=== PATIENT | male | born 1960 | race Caucasian/White ===

== ENCOUNTER 2016-03-04 23:35 | Inpatient (IN) | payer MEDICAID ==
[~2016-03-04] VITALS: Ht 175.3 cm; Wt 75.7 kg
[~2016-03-04 23:35] MED LIST: PRINIVIL20 MG PO; PROTONIX40 MG PO; ULTRAM50 MG PO
[2016-03-05] VITALS (13 sets, daily range): BP systolic 100–143; BP diastolic 67–107; Ht 175.3 cm; Wt 75.7 kg
[2016-03-05 00:51] LABS: BASOPHILS 0 % (0.0-2.0); EOSINOPHILS 1.1 % (0-7); HEMATOCRIT 40.6 % (42.0-54.0); HEMOGLOBIN 13.7 g/dL (13.5-17.5); IMMATURE GRANULOCYTES 0.3 % (0-5); LYMPHOCYTES 47.6 % (15-50); MCH 29.7 pg (26.0-34.0); MCHC 33.7 g/dL (31.0-37.0); MCV 88.1 fL (80.0-100.0); MEAN PLATELET VOLUME 9.6 fL (7.4-10.4); MONOCYTES 8.6 % (2-11); NEUTROPHILS 42.4 % (40-80); PLATELET COUNT 113 10x3/uL (130-400); RBC 4.61 10x6/uL (4.20-6.10); RDW 14.3 % (11.5-14.5); WBC 6.7 10x3/uL (4.8-10.8)
[2016-03-05 01:06] LABS: ALBUMIN 3.5 g/dL (3.4-5.0); ALKALINE PHOSPHATASE 84 U/L (46-116); ALT (SGPT) 241 U/L (10-68); CALCIUM 8.4 mg/dL (8.5-10.1); CARBON DIOXIDE 25.5 mmol/L (21.0-32.0); CHLORIDE - SERUM 105 mmol/L (98-107); CREATINE KINASE 62 UL (21-232); CREATININE - SERUM 0.7 mg/dL (0.6-1.3); MAGNESIUM - SERUM 1.8 mg/dL (1.8-2.4); POTASSIUM - SERUM 4.3 mmol/L (3.5-5.1); PROTEIN - SERUM 7.2 g/dL (6.4-8.2); SODIUM 140 mmol/L (136-145); UREA NITROGEN 8 mg/dL (7-18); eGFR NON AFRICAN AMERICAN > 90 mL/min (90-120)
[2016-03-05 01:07] LABS: BILIRUBIN - TOTAL 0.09 mg/dL (0.2-1.3); CALC OSMOLALITY 276 mosm/kg (275-300); GLUCOSE 91 mg/dL (74-106)
[2016-03-05] MEDS ORDERED: LAMISIL250 MG PO (05:31)
[2016-03-05] MEDS ORDERED: ZOLOFT100 MG PO (05:36)
[2016-03-05] MEDS ORDERED: AMBIEN10 MG (05:36)
[2016-03-05 05:57] LABS: APPEARANCE CLEAR (CLEAR); BILIRUBIN NEGATIVE (NEGATIVE); COLOR YELLOW (YELLOW); GLUCOSE NEGATIVE (NEGATIVE); KETONE NEGATIVE (NEGATIVE); LEUKOCYTE ESTERASE NEGATIVE (NEGATIVE); NITRITE NEGATIVE (NEGATIVE); PROTEIN NEGATIVE (NEGATIVE); UROBILINOGEN NORMAL (NORMAL)
[2016-03-05 06:07] LABS: UDS - AMPHET NEGATIVE QUAL (NEGATIVE); UDS - BARB NEGATIVE QUAL (NEGATIVE); UDS - BENZO POSITIVE QUAL (NEGATIVE); UDS - COCAINE NEGATIVE QUAL (NEGATIVE); UDS - METH NEGATIVE QUAL (NEGATIVE); UDS - OPIATE NEGATIVE QUAL (NEGATIVE); UDS - PCP NEGATIVE QUAL (NEGATIVE); UDS - THC NEGATIVE QUAL (NEGATIVE)
--- NOTE | 2016-03-05 07:20 | NUR ---
PATIENT RECEIVED IN LEFT LATERAL POSITION RESTING WITH EYES CLOSED. RESPIRATIONS EVEN AND UNLABORED. SIDE RAILS UP X3. BED IN LOW POSITION. CALL LIGHT IN REACH.
--- NOTE | 2016-03-05 09:30 | NUR ---
PATIENT IN BED RESTING QUIETLY WITH EYES CLOSED. RESPIRATIONS EVEN AND UNLABORED. WAKES EASY. SCHEDULED MEDICATION ADMINISTERED. IV TO LEFT FOREARM HARD TO FLUSH AND RED. IV D/C WITH CATH TIP INTACT. SITE COVERED WITH GAUZE AND BANDAID. ATTEMPTED TO RESITE IV TO RIGHT FOREARM X1 ATTEMPT WITHOUT SUCCESS. CALL LIGHT IN REACH. SIDE RAILS UP X3. BED IN LOW POSITION. CALL LIGHT IN REACH.
--- NOTE | 2016-03-05 10:10 | NUR ---
DOROTHY FORTE RN ATTEMPT TO RESITE IV X2 FAILED ATTEMPTS. CONSULT FOR VASCULAR ACCESS NURSE PLACED.
--- NOTE | 2016-03-05 11:42 | NUR ---
SCHEDULED MEDICATION ADMINISTERED. RIGHT MIDLINE FLUSHES EASY. DENIES NEEDS. AT BEDSIDE. SIDE RAILS UP X3. BED IN LOW POSITION. CALL LIGHT IN REACH.
[2016-03-05 12:00] LABS: MAGNESIUM - SERUM 1.8 mg/dL (1.8-2.4); PHOSPHOROUS 3.2 mg/dL (2.5-4.9)
--- NOTE | 2016-03-05 12:20 | NUR ---
NOTIFIED BY NURSE AID THAT PATIENT WAS HAVING SEIZURE. OBSERVED PATIENT SHAKING. ELLA RN AND PHYSICIANS AT BEDSIDE. PATIENT TURNED TO SIDE.
--- NOTE | 2016-03-05 12:23 | NUR ---
2MG ATIVAN ADMINISTERED IV FOR SEIZURE ACTIVITY.
--- NOTE | 2016-03-05 12:30 | NUR ---
PATIENT BEGAN SEIZING AGAIN. 1MG ATIVAN ADMINISTERED IV PER ORDER.
--- NOTE | 2016-03-05 12:35 | NUR ---
REPORT CALLED TO ICU. PAULA HICKEY RECEIVED REPORT. PATIENT TRANSFERRED VIA BED.
--- NOTE | 2016-03-05 12:41 | NUR ---
Received patient from med surg. Pt self transferred from bed to bed. Pt is currently sinus tach on CM rate 120s. BP stable 120s systolic. Patient c/o pain 10/10 headache. Pt received ativan and diludid on med surg. Patient is exteremly photosensitive upon assessing pupils. Pupils are equal and reactive to light, accomidation not assessed. Lungs are clear throughout all lobes, 96% o2 saturation on room air. Pt voids via urinal. See shift assessment flowsheet for all findings.
--- NOTE | 2016-03-05 13:30 | NUR ---
through to see patient. New orders received.
--- NOTE | 2016-03-05 13:54 | NUR ---
back through to see patient. No new orders received.
--- NOTE | 2016-03-05 17:44 | NUR ---
Patient back from MRI, I accompained pt to, from and during MRI. There has not been any seizures since pt arrived from [facility]. Pt continues to c/o headache, pain meds cannot yet be administered. Pt set up with phone and call light. Denies needs.
--- NOTE | 2016-03-05 18:55 | HP ---
PATIENT: FAUSTO MUSA MEDICAL RECORD: [id number] ACCOUNT: [id number] LOCATION:[facility] D.2305 : 62 ADMISSION DATE: 03/05/16 HISTORY AND PHYSICAL EXAMINATION Family Practice History and Physical DATE OF ADMISSION: 03/05/2016. HISTORY OF PRESENT ILLNESS: Mr. Musa is a 55-year-old white male, patient of Dr. Montes, who presents with a possible seizure activity at home witnessed by his , called the EMS and brought in. He was subsequently admitted. He has a longstanding history of alcohol abuse, was recently started on Zoloft and tramadol for some pain issues. CT of his head in the Emergency Room revealed nothing acute. LABORATORY DATA: White count was 6.7, H&H 13 and 40 with a platelet count of 113. Sodium 140, potassium 4.3, BUN 8, creatinine 0.7, glucose 91. Liver function tests reveal a total bilirubin of 0.09, ALT is 241, AST 138. Toxicology was positive for benzos. Alcohol level was 152. Urine was clean. PAST MEDICAL HISTORY: Significant for hepatitis C, chronic alcohol abuse. He has had a history of GI bleed and pancreatitis in the past related to his alcohol abuse. ALLERGIES: None known. HOME MEDICATIONS: Recently been on terbinafine 250 mg every day, lisinopril 20 a day, Ambien 10 at bedtime, sertraline 100 at bedtime, tramadol 50 q.4 p.r.n., pantoprazole 40 mg a day. SOCIAL HISTORY: The patient is . He has a positive history of tobacco use and alcohol abuse. Works in heating and air. REVIEW OF SYSTEMS: Significant for headache. He has got some photophobia, has not had any fever, denies any visual change, denies chest pain or shortness of breath. PHYSICAL EXAMINATION: HEENT: Head is normocephalic. He has got a hearing aid in place. Sclerae nonicteric. NECK: Without rigidity. HEART: Regular. LUNGS: Clear. ABDOMEN: Soft. IMPRESSION: 1. Seizure disorder. 2. Alcohol abuse. 3. Recent addition of SSRI and tramadol for headache. 4. Negative CT. PLAN: Admit, move into ICU now because of continued seizures has been loaded with Cerebrex. Neurology consult. Consider MRI, but we will need to stabilize first. No infectious signs or symptoms at this time. HISTORY AND PHYSICAL [id number] FAUSTO MUSA TRANSINT:[id number] Voice Confirmation ID: [id number] DOCUMENT ID: [id number] KIMO OMALLEY DO at 1855 CC: [id number] DICTATION DATE: 03/05/16 1301 REINFORCER: 03/05/16 1412 ADM IN [id number] [place] [address]
--- NOTE | 2016-03-05 19:18 | NUR ---
PAtient had seziure like activity from appx 1389-1801. Pt is currently postictal. I called and spoke to him, gave him information regarding seizure and received new orders. Also spoke to Sandrine with and received new orders.
--- NOTE | 2016-03-05 19:20 | NUR ---
REPORT REC'D, ASSUMED PT'S CARE. PT C/O HEADACHE, STILL POSTICAL POSITION. CPOC
--- NOTE | 2016-03-05 20:10 | NUR ---
PT OOB, WANTS TO USE BATHROOM. BEDSIDE COMMADE PROVIDED. NO RESULTS NOTED.
--- NOTE | 2016-03-05 21:00 | NUR ---
PT OOB, WANTS TO HAVE BATH, ASSISTED WITH LINEN AND GOWN. PT SITTING BY SINK WASHING SELF, SHAVEING AND ORAL CARE. DENIES PAIN OR DISCOMFORT AT THIS TIME. VSS.
--- NOTE | 2016-03-05 21:38 | NUR ---
PT REQUESTED TO EAT, SANDWICH BAX PROVIDED. ENTERED IN ROOM, PT START HAVING SEIZURE LIKE ACTIVITY, TWITCHING, BUT RESPONSIVE TO PAIN, PT STATES THAT HE FELLTS COMING THE SEIZURE.
[2016-03-06] VITALS: BP 134/86
[2016-03-06 01:00] VITALS: BP 114/79
--- NOTE | 2016-03-06 01:00 | NUR ---
PT PULLED ALL GLOBAL MARKETING SPECIALIST LINES OFF. STAND UP AND RUNNIG AROUND ROOM, ENCOUREGED TO USE CALL LIGHT FOR ANY NEEDS.
[2016-03-06 03:00] VITALS: BP 110/68
--- NOTE | 2016-03-06 03:00 | NUR ---
REASSESSMENT COMPLETED, SEE FLOW SHEETS FOR ALL FINDINGS. VSS
[2016-03-06 05:36] LABS: BASOPHILS 0 % (0.0-2.0); EOSINOPHILS 0.7 % (0-7); HEMATOCRIT 39.5 % (42.0-54.0); HEMOGLOBIN 12.9 g/dL (13.5-17.5); IMMATURE GRANULOCYTES 0.1 % (0-5); MCH 29.8 pg (26.0-34.0); MCHC 32.7 g/dL (31.0-37.0); MONOCYTES 12.8 % (2-11); NEUTROPHILS 52.4 % (40-80); PLATELET COUNT 122 10x3/uL (130-400); RBC 4.33 10x6/uL (4.20-6.10); RDW 14.6 % (11.5-14.5); WBC 6.7 10x3/uL (4.8-10.8)
[2016-03-06 05:41] LABS: ALBUMIN 3.8 g/dL (3.4-5.0); ALKALINE PHOSPHATASE 79 U/L (46-116); ALT (SGPT) 225 U/L (10-68); BILIRUBIN - TOTAL 0.45 mg/dL (0.2-1.3); CALCIUM 8.6 mg/dL (8.5-10.1); CARBON DIOXIDE 28.6 mmol/L (21.0-32.0); CHLORIDE - SERUM 107 mmol/L (98-107); GLUCOSE 101 mg/dL (74-106); POTASSIUM - SERUM 4.4 mmol/L (3.5-5.1); PROTEIN - SERUM 7.1 g/dL (6.4-8.2); SODIUM 145 mmol/L (136-145)
[2016-03-06 05:52] LABS: CALC OSMOLALITY 287 mosm/kg (275-300); CREATININE - SERUM 0.9 mg/dL (0.6-1.3); UREA NITROGEN 11 mg/dL (7-18); eGFR NON AFRICAN AMERICAN > 90 mL/min (90-120)
[2016-03-06 05:53] LABS: MCV 91.2 fL (80.0-100.0)
--- NOTE | 2016-03-06 08:43 | NUR ---
0700-RECIEVED AWAKE ALERT-STANDING IN RM -AIRING OUT CLOTHING-RECIVING VERBAL REPORT FROM NIGHT NURSE-GLANCED UP AT PT AND NOT PRESENT -ENTERED ROOM WITH NIGHT NURSE AND FOUND ON FLOOR IN STIFFENED STRAIGHT RIGID POSITION-ROLLED ON BLANKET AND IAP DISPLAYS ANALYST LIFTED TO BED WITH 4 NURSES TOTAL-DR CEVALLOS AT BEDSIDE-PT MADE AGRESSIVE MOVEMENTS TOWARDS DR CEVALLOS-IN RESPONSE TO NUERO CHECK-ATIVAN 2MG IVP GIVEN BY NIGHT NURSE IN ATTEMPT TO RELEASE PT STRONG PAINFUL HAND LIGHT RAIL OPERATOR TO DR CEVALLOS-RELEASE OBTAINED-PT GUTTERAL IN VERBAL RESPONSE-BEGAN ROCKING MOTION IN BED-AND INCREASED TO BANGING HEAD ON BED RAILS-STAFF INTERVENED TO PREVENT DAMAGE TO HEAD -NOTED LACERATED AREA TO L LOWER BACK HEAD-NIGHT NURSE STATED THAT IS THE RESULT OF PT SHAVING HAIR OFF DURING NIGHT WHEN ASKED FOR RAZOR-AREA CLEANED AND TEGADERM APPLIED--PT ROCKING BACK AND FORTH AND CLUTCHING HEAD-ASKED SAME IF NEEDED COLD CLOTHE FOR HEAD =PT READILY AGREED-PROVIDED ICE CLOTH AND INSTRUCTED TO PLACE ON AREA CAUSING PAIN-PT PLACED CLOTHE TO RIGHT LATERAL HEAD-AND LAYED DOWN 0745-DILAUDID 1MG IVP GIVEN-BED ALARM TURNED ON AND DIRECTED TO REMAIN IN BED 0830-PT ALERT AND VERBALLY CLEAR-STATED PAIN DECREASED BUT REMAINS-QUESTIONED PT IF USED AND SOLE CONFORMING MACHINE OPERATOR TYPE DRUGS/ MARIJUANA LACED-COCAINE LACED-PT NODDED YES BUT WOULD NOT CLARIFY-ENCOURAGED PT WITH STATING THAT WOULD BE THE BEST RESULT ANSWER-NO FURTHER--PT STATED WANT TO GET OUT OF HERE AND BEAT SOMEBODIES ASS-HEAVY BOOTS REMOVED DURING EARLIER INCIDENT AND PLACED AT NURSES DESK-BELONGINGS REMOVED AND PLACED AT NURSES DESK-LABELED-- 0845- CALLED UNIT AND OFFERED HAS BEEN AT [facility] AND OTHER PSYCHIATRIC UNITS-OFFERED -DIAGNOSED WITH EXPLOSIVE--BI-POLAR DISORDER-OFFERED TO BRING RECORDS TO HOSPITAL-STATED NON COMPLIANT WITH PT MEDICATIONS-STATED SHE NEVER KNOWS HOW SHE WILL FIND HIM WHEN SHE COMES HOME FROM WORK-
[2016-03-06 09:10] VITALS: BP 139/96
[2016-03-06 09:18] LABS: HEPATITIS C ANTIBODY >11.0 (0.0-0.9)
--- NOTE | 2016-03-06 10:12 | NUR ---
Nutrition follow-up: Diet: Regular Pt still with seizure like activity noted Labs reviewed Wt: 166# Will provide food choices with selective menus and honor food preferences. RDN following.
--- NOTE | 2016-03-06 10:50 | NUR ---
PATIENT IS CONFUSED AND DISORIENTED. HE IS NOT ABLE TO ANSWER QUESTIONS AT THIS TIME. I HAVE NOT SEEN ANY FAMILY HERE TO INTERVIEW.
[2016-03-06 11:40] VITALS: BP 141/93
--- NOTE | 2016-03-06 12:17 | NUR ---
899-FOUND PT WITH BLANKET COVERED OVER HEAD AND WRAPPED AROUND SELF -LEAVING RM-CALLED TO PT- RETURN TO RM-ENGINEERING (SECURITY) SERVICES NOTIFIED OF HIGH VIOLENT RISK WITH CARING FOR PT- 929-SECURITY AT BEDSIDE-FOR STAFF SAFETY- 1029-PT CALLING POLICE DEPARTMENT-STATING HELD AGAINST WILL- 1045-DR ABARCA IN UNIT AND MADE AWARE OF SITUATION 1100-DISCHARGE ORDER PER DR ABARCA--CRUSHING MILL OPERATOR AT BEDSIDE -ASKED PT PERMISSION TO COMPLETE EEG ORDERED-PT AGREEABLE-COMPLETELY DENIES HEADACHE- 1215-EEG COMPLETED PICC LINE REMOVED BY IV SPECIALIST- AT BEDSIDE-ABLE TO HAVE PT AGREE TO VOLUNTARY ADMIT TO [facility]-ONLY TODAY-KBRN
--- NOTE | 2016-03-06 14:02 | NUR ---
7273-CALLED [facility]-AND SPOKE WITH JUANITA MITCHELL REGARDING PT AND VOLUNTARY COMMITTMENT-REQUIRED DATA AND RELEASE OF INFO FAXED TO [facility] AT [phone]- DIRECTED-
--- NOTE | 2016-03-06 14:08 | NUR ---
1255-REFAXED TO [facility]- 1350-CALL RECIEVED FROM KEVIN GOEL-NO ACCEPTANCE-INFORMED -CALLED Kim HYDE [facility] NOTIFIED-NO DISCHARGE ORDERS AT THIS TIME
--- NOTE | 2016-03-06 15:12 | NUR ---
1430-DR ABARCA IN UNIT AND REVIEWED WITH REGARDING REFUSAL OF [facility] ACCEPTANCE THIS WEEKEND-REASONS GIVEN-NO SUICIDAL OR HOMICIDAL IDEATIONS-ONLY EMERGENT BED AVAILABLE AT THIS TIME-- EXPRESSED FEAR AND CONCERN REGARDING PT RAGES AT HOME-STATED SIMILAR TO WHAT PT DISPLAYED IN ICU THIS AM-PROVIDED ADULT PROTECTIVE SERVICES-PROVIDED [place] POLICE DEPARTMENT-PROVIDED DIRECTION TO CALL EMT/ PARAMEDICS AND DIRECT TO HOSPITAL-PSYCHIATRIC CARE PLACEMENT WILL OCCUR MORE READILY EMERGENT-DR CEVALLOS NOTIFIED OF DISCHARGE HOME ORDER AND STRONG ATTEMPT TO PLACE AT [facility] VOLUNTARY- 1500-DISCHARGED HOME WITH -CASE MANAGEMENT MADE AWARE-KBRN
--- NOTE | 2016-03-15 07:21 | EEG ---
PATIENT:FAUSTO BARKAAT DATE OF SERVICE: 03/05/16 MEDICAL RECORD: [id number] DATE OF : 62 LOCATION:D.230 D.ICU ADMISSION DATE: 03/05/16 REFERRING PHYSICIAN: INTERPRETING PHYSICIAN: KRISTINA CEVALLOS MD DATE OF SERVICE: 03/06/2016 Referred by myself as an inpatient in room 2305. ELECTROENCEPHALOGRAM NUMBER: [id number] DATE OF EXAMINATION: 03/06/2016 at 12:00 noon TECHNICAL DATA: This electroencephalographic recording consisted of approximately 20 minutes of data collection utilizing the international 10/20 system of electrode placement and both referential and non-referential montages. Sixteen channels of electrocerebral recording are accompanied by a 17th channel dedicated to the electrocardiographic rhythm and 2 channels of electromyographic recording. Recording is performed in the awake and drowsy states utilizing activation by photic stimulation. ELECTROENCEPHALOGRAPHIC DATA: The awake state comprises approximately 60% of the recorded electrocerebral activity. Electromyographic artifact is prominent and rapid eye movements are seen. The posterior dominant background consists of a symmetric, semi-rhythmic, waxing and waning 8-9 Hz alpha activity, which is suppressed by eye opening. There is also excessive beta activity in the range of 12-15 Hz seen fairly diffusely is across the scalp and felt to represent medication effect. The drowsy state comprises the remaining portion of the recorded electrocerebral activity. Electromyographic artifact is diminished and rapid eye movements are not seen. The posterior dominant background is relatively suppressed. No abnormal or focal slowing is identified. No epileptiform discharges are seen. Photic stimulation induces no abnormal change in the recorded electrocerebral activity. INTERPRETATION: Normal (awake and drowsy). This is a normal electroencephalographic recording. TRANSINT:[id number] Voice Confirmation ID: [id number] DOCUMENT ID: [id number] KRISTINA CEVALLOS MD at 0721 CC: [id number] DICTATION DATE: 03/07/16 0640 RIBBING MACHINE OPERATOR: 03/07/16 0842 DIS IN 03/06/16 [facility] [address] [place] [address]
--- NOTE | 2016-04-14 10:09 | DS ---
PATIENT:FAUSTO BARAKAT :62 MEDICAL RECORD: [id number] DISCHARGE SUMMARY ADMISSION DATE: 03/05/16 DISCHARGE DATE: 03/06/16 This is a discharge dated 03/06/2016 from the inpatient hospital. DISCHARGE DIAGNOSES: 1. Seizure. 2. Anemia. 3. Hepatitis C. 4. Alcohol abuse. 5. Tobacco abuse. 6. Hypertension. CONSULTS THIS HOSPITALIZATION: Neurology with Dr. Villatoro. PROCEDURES THIS HOSPITALIZATION: EEG that was read as normal. HOSPITAL COURSE: Full H&P is located elsewhere on the chart on this 55-year-old male who was admitted for evaluation of possible seizures. He had a CT Head with no acute abnormalities. He was given Ativan to abort seizures and was loaded with Cerebyx. He was admitted to ICU due to continued seizures. Neurology was consulted. He was seen by Dr. Villatoro. Dr. Villatoro noted that the witness to event was nonepileptiform. MRI of the brain was normal. He recommended a video EEG after discharge to further evaluate seizure activity. He had no further seizure-type activity and was considered stable for discharge home on 03/06/2016. DISCHARGE MEDICATIONS: As per discharge medication reconciliation. DISCHARGE DISPOSITION: The patient is discharged home. He is to return to his PCP in 1 week and it was recommended that he attend AA meetings and abstain from alcohol. At least 30 minutes was spent in this discharge activity. TRANSINT:[id number] Voice Confirmation ID: [id number] DOCUMENT ID: [id number] Dictated By: GONZÁLEZ ZHANG I have interviewed/examined the above patient and agree with these documented findings. CHUY ABARCA MD at 1009 at 1010 CC: [id number] DICTATION DATE: 04/10/16 1451 PLATING TECHNICIAN: 04/11/16 0754 DIS IN 03/06/16 [facility] [address] [place] [address]
== END 2016-03-06 15:39 | disposition home or self-care (01) | DRG 101 ==
LOC: D.ER 23:35 → D.MS 03-05 02:03 → OBSVTIME 03-05 02:03 → D.MS 03-05 02:03 → D.ICU 03-05 12:28
PROVIDERS: Emergency Medicine; ADMIT Family Medicine
PROC: 05HB33Z Insertion of Infusion Device into Right Basilic Vein, Percutaneous Approach (ICD-10-PCS; principal; 2016-03-05)
PROC: B54MZZA Ultrasonography of Right Upper Extremity Veins, Guidance (ICD-10-PCS; 2016-03-05)
DX: G40.409 Other generalized epilepsy and epileptic syndromes, not intractable, without status epilepticus (principal); G40.89 Other seizures; F10.20 Alcohol dependence, uncomplicated; K75.9 Inflammatory liver disease, unspecified; F17.200 Nicotine dependence, unspecified, uncomplicated

== ENCOUNTER 2016-05-01 08:15 | Emergency (ER) | payer MEDICAID ==
[2016-03-05 13:19] VITALS: BMI 24.6
[~2016-05-01 08:15] MED LIST changes: +AMBIEN10 MG; +LAMISIL250 MG PO; +ZOLOFT100 MG PO
== END 2016-05-01 10:07 | disposition home or self-care (01) ==
LOC: D.ER 08:15
DX: J20.9 Acute bronchitis, unspecified (principal); B19.20 Unspecified viral hepatitis C without hepatic coma; E87.1 Hypo-osmolality and hyponatremia; F17.200 Nicotine dependence, unspecified, uncomplicated

== ENCOUNTER 2016-05-19 08:49 | Emergency (ER) | payer MEDICAID ==
[2016-03-05 13:19] VITALS: BMI 24.6
[2016-05-19 10:19] LABS: APPEARANCE CLEAR (CLEAR); BILIRUBIN NEGATIVE (NEGATIVE); COLOR YELLOW (YELLOW); GLUCOSE NEGATIVE (NEGATIVE); KETONE NEGATIVE (NEGATIVE); LEUKOCYTE ESTERASE NEGATIVE (NEGATIVE); NITRITE NEGATIVE (NEGATIVE); PROTEIN NEGATIVE (NEGATIVE); UROBILINOGEN NORMAL (NORMAL)
== END 2016-05-19 11:00 | disposition home or self-care (01) ==
LOC: D.ER 08:49
PROVIDERS: Emergency Medicine
DX: T43.215A Adverse effect of selective serotonin and norepinephrine reuptake inhibitors, initial encounter (principal); Y92.019 Unspecified place in single-family (private) house as the place of occurrence of the external cause; N39.9 Disorder of urinary system, unspecified; B19.20 Unspecified viral hepatitis C without hepatic coma; E87.1 Hypo-osmolality and hyponatremia; F17.200 Nicotine dependence, unspecified, uncomplicated

== ENCOUNTER 2016-07-24 13:46 | Emergency (ER) | payer MEDICAID ==
[2016-03-05 13:19] VITALS: BMI 24.6
[2016-07-24 14:42] LABS: BASOPHILS 0 % (0-2); EOSINOPHILS 0.9 % (0-7); HEMATOCRIT 35.2 % (42.0-54.0); HEMOGLOBIN 12.1 g/dL (13.5-17.5); IMMATURE GRANULOCYTES 0.2 % (0-5); LYMPHOCYTES 43.5 % (15-50); MCH 30.3 pg (26.0-34.0); MCHC 34.4 g/dL (31.0-37.0); MCV 88.2 fL (80.0-100.0); MEAN PLATELET VOLUME 9.8 fL (7.4-10.4); MONOCYTES 6.3 % (2-11); NEUTROPHILS 49.1 % (40-80); PLATELET COUNT 107 10x3/uL (130-400); RBC 3.99 10x6/uL (4.20-6.10); RDW 14.5 % (11.5-14.5); WBC 5.4 10x3/uL (4.8-10.8)
[2016-07-24 15:06] LABS: ALBUMIN 3.5 g/dL (3.4-5.0); ALKALINE PHOSPHATASE 124 U/L (46-116); ALT (SGPT) 161 U/L (10-68); AMYLASE - SERUM 24 U/L (25-115); BILIRUBIN - TOTAL 0.33 mg/dL (0.2-1.3); CALC OSMOLALITY 271 mosm/kg (275-300); CALCIUM 8.3 mg/dL (8.5-10.1); CARBON DIOXIDE 24.3 mmol/L (21.0-32.0); CHLORIDE - SERUM 102 mmol/L (98-107); CREATININE - SERUM 0.7 mg/dL (0.6-1.3); GLUCOSE 88 mg/dL (74-106); LIPASE 54 U/L (73-393); POTASSIUM - SERUM 3.7 mmol/L (3.5-5.1); PROTEIN - SERUM 6.9 g/dL (6.4-8.2); SODIUM 138 mmol/L (136-145); UREA NITROGEN 5 mg/dL (7-18); eGFR NON AFRICAN AMERICAN > 90 mL/min (90-120)
== END 2016-07-24 15:21 | disposition left against medical advice (07) ==
LOC: D.ER 13:46
PROVIDERS: Emergency Medicine; Nurse Practitioner Acute Care
DX: R10.84 Generalized abdominal pain (principal)

== ENCOUNTER 2016-09-12 12:59 | Inpatient (IN) | payer MEDICAID ==
[2016-09-12] VITALS (8 sets, daily range): BP systolic 143–164; BP diastolic 77–117
[~2016-09-12] VITALS: Ht 175.3 cm; Wt 72.5 kg
[2016-09-12 13:39] LABS: BASOPHILS 0.2 % (0-2); EOSINOPHILS 0.9 % (0-7); HEMATOCRIT 43.1 % (42.0-54.0); HEMOGLOBIN 14.9 g/dL (13.5-17.5); IMMATURE GRANULOCYTES 0.3 % (0-5); LYMPHOCYTES 44.2 % (15-50); MCH 32.3 pg (26.0-34.0); MCHC 34.6 g/dL (31.0-37.0); MCV 93.3 fL (80.0-100.0); MEAN PLATELET VOLUME 9.7 fL (7.4-10.4); MONOCYTES 7.4 % (2-11); PLATELET COUNT 135 10x3/uL (130-400); RBC 4.62 10x6/uL (4.20-6.10); WBC 6.6 10x3/uL (4.8-10.8)
[2016-09-12 13:58] LABS: ALKALINE PHOSPHATASE 117 U/L (46-116); ALT (SGPT) 269 U/L (10-68); AMYLASE - SERUM 46 U/L (25-115); BILIRUBIN - TOTAL 0.43 mg/dL (0.2-1.3); CALC OSMOLALITY 261 mosm/kg (275-300); CALCIUM 8.3 mg/dL (8.5-10.1); CARBON DIOXIDE 24.4 mmol/L (21.0-32.0); CHLORIDE - SERUM 97 mmol/L (98-107); CREATININE - SERUM 0.6 mg/dL (0.6-1.3); GLUCOSE 123 mg/dL (74-106); LIPASE 119 U/L (73-393); PROTEIN - SERUM 8.5 g/dL (6.4-8.2); SODIUM 131 mmol/L (136-145); UREA NITROGEN 8 mg/dL (7-18); eGFR NON AFRICAN AMERICAN > 90 mL/min (90-120)
[2016-09-12 13:59] LABS: POTASSIUM - SERUM 4.2 mmol/L (3.5-5.1)
[2016-09-12 14:38] LABS: APTT 42.1 SECONDS (22.8-39.4); INR 1.19 (0.85-1.17)
[2016-09-12 14:46] LABS: MAGNESIUM - SERUM 2.1 mg/dL (1.8-2.4)
--- NOTE | 2016-09-12 17:05 | NUR ---
RECIEVED PT AT THIS TIME FROM ER. REPORT RECIEVED FROM PARI. PT NOTED ALERT AND ORIENTED. PT NOTED TO BE SHAKING AND STATING HE IS IN ALOT OF PAIN TO HIS ABDOMEN AND HIS BACK. REDNESS NOTED TO PTS FACE AND BILATERAL ARMS. PT NOTED TO HUNCH OVER AT TIMES AND GRIMACE IN DISCOMFORT WHEN HE EXPERIENCES PAIN, STATING IT FEELS LIKE SHARP PAIN AND COMES AND GOES LIKE CRAMPS. WILL CONTACT PHYSICIAN TO RECIEVE FURTHER ORDERS TO HELP MANAGE PTS PAIN.
--- NOTE | 2016-09-12 17:06 | NUR ---
SPOKE WITH DR OVALLE, ORDERS RECIEVED.
--- NOTE | 2016-09-12 18:38 | NUR ---
SPOKE WITH DR BUITRAGO NOTED UNABLE TO OBTAIN IV ACCESS OTHER THAN RIGHT ANKLE, ORDER FOR SURGERY CONSULT FOR CVL RECIEVED. ALSO NOTED UNABLE TO DECREASE DISCOMFORT AFTER MULTIPLE PRN MEDS FOR DISCOMFORT. DILAUDID MUSIC SUPERVISOR ORDERED. WILL PROCESS ORDERS.
--- NOTE | 2016-09-12 19:17 | NUR ---
NOTED IU PRBC ORDERED BY ER PHYSICIAN BUT DID NOT STATE WHETHER TO ADMIN THE 1UPRBC. CALLER ER NURSE PARI WHO HAD INITIONALLY GIVEN REPORT WHEN PT WAS ADMITTED TO ICU. PARI CLARIFIED THAT PHYSICIAN DID NOT WANT THE 1UPRBC TO BE GIVEN, HE ONLY WANTED THE CROSS AND MATCH TO BE COMPLETED.
--- NOTE | 2016-09-12 19:20 | NUR ---
REPORT RECIEVED, INITIAL ASSESSMENT COMPLETE, PLEASE SEE FLOW SHEETS FOR DETAILS. PATIENT GRIMACING, C/O ABD AND BACK PAIN, OFFERED DYE LINE OPERATOR THAT HAS BEEN ORDERED AND THIS WAS REFUSED. BS HYPO X4. PPP. PUPILS 3MM AND BRISK, CAP REFIL <3 SECONDS. PROVIDED PILLOWS FOR BACK SUPPORT, THESE WERE ACCEPTED. S1S2 AUSCULTATED AND NSR NOTED ON MONITOR. VAUGHAN ORDERED, PATIENT IS ACTIVELY USING URINAL AND NO INCONTINENCE NOTED, PREVIOUS NURSE WAS UNSUCCESSFUL IN INSERTING A VAUGHAN INTO BLADDER. WILL MONITOR FOR VAUGHAN NEED. DENIES ANY OTHER NEEDS ATT. WILL CPOC.
--- NOTE | 2016-09-12 20:40 | NUR ---
PATIENT MOANING OUT, CHECKED IN ON HIM AND ASKED IF HE WANTED PAIN MEDS, HE SAID YES BUT NOT TILE INSTALLER, WILL GIVE PAIN MEDS PER ORDERS.
--- NOTE | 2016-09-12 21:00 | NUR ---
C/O PAIN, OFFERED DILAUDID LITHOGRAPHERS PRINTER, THIS WAS REFUSED AGAIN, BP SLIGHTLY ELEVATED BUT STABLE, ALL OTHER VSS. BED LOW AND LOCKED, CALL LIGHT IN REACH. WILL CPOC.
--- NOTE | 2016-09-12 21:51 | NUR ---
PATIENT CONTINUES TO C/O PAIN IN BACK AND ABD 12/01, REFUSES WINE CELLAR WORKER PUMP CONTINUALLY, ADVISED TO LET ME KNOW IF HE DECIDES THAT HE WANTS IT.
[2016-09-12 22:03] LABS: HEMATOCRIT 36.3 % (42.0-54.0); HEMOGLOBIN 12.4 g/dL (13.5-17.5)
--- NOTE | 2016-09-12 22:06 | NUR ---
PAGED AND SPOKE TO DR ALDRICH, READ XRAY REPORT TO HIM AND HE SAID OKAY TO USE CVL
--- NOTE | 2016-09-12 22:16 | NUR ---
HUNG NEW FLUIDS AND NEW TUBING AND STARTED USING CVL.
--- NOTE | 2016-09-12 23:00 | NUR ---
REASSESSMENT COMPLETE, PLEASE SEE FLWO SHEETS FOR DETAILS. VSS, BED LOW AND LOCKED, CALL LIGHT IN REACH. WILL CPOC.
[2016-09-13] VITALS (25 sets, daily range): BP systolic 108–168; BP diastolic 67–122; BMI 24.2
--- NOTE | 2016-09-13 01:00 | NUR ---
C/O PAIN IN ABD AND BACK 10/01, GIVING PAIN MEDS PER ORDERS. VSS ATT, BED LOW AND LOCKED, CALL LIGHT IN REACH. WILL CPOC.
--- NOTE | 2016-09-13 02:00 | NUR ---
C/O PAIN, TOLD HIM NO PAIN MEDS AVAILABLE ATT, CAN START SUPERVISOR PIGMENT MAKING, THIS WAS REFUSED. OFFERED ICE PACK OR HEATED BLANKET, STATED HE WANTED THE ICE PACK. DENIES ANY OTHER NEEDS ATT. BED LOW AND LOCKED, CALL LIGHT IN REACH. WILL CPOC.
--- NOTE | 2016-09-13 03:00 | NUR ---
REASSESSMENT COMPLETE, PLEASE SEE FLOW SHEETS FOR DETAILS. VSS ATT, STILL C/O PAIN AND REFUSES SUPERVISOR REFRACTORY PRODUCTS PUMP. GIVING MEDS PER ORDERS. BED LOW AND LOCKED, CALL LIGHT IN REACH. NPO ATT. WILL CPOC.
[2016-09-13 03:52] LABS: BASOPHILS 0 % (0-2); EOSINOPHILS 0.4 % (0-7); HEMATOCRIT 36.4 % (42.0-54.0); HEMOGLOBIN 12.5 g/dL (13.5-17.5); IMMATURE GRANULOCYTES 0.4 % (0-5); LYMPHOCYTES 25.6 % (15-50); MCH 32.1 pg (26.0-34.0); MCHC 34.3 g/dL (31.0-37.0); MCV 93.6 fL (80.0-100.0); MEAN PLATELET VOLUME 9.2 fL (7.4-10.4); MONOCYTES 7.7 % (2-11); NEUTROPHILS 65.9 % (40-80); RBC 3.89 10x6/uL (4.20-6.10); RDW 14.9 % (11.5-14.5); WBC 5.1 10x3/uL (4.8-10.8)
[2016-09-13 03:53] LABS: PLATELET COUNT 106 10x3/uL (130-400)
[2016-09-13 04:10] LABS: ALBUMIN 3.5 g/dL (3.4-5.0); ALKALINE PHOSPHATASE 104 U/L (46-116); ALT (SGPT) 217 U/L (10-68); BILIRUBIN - TOTAL 0.89 mg/dL (0.2-1.3); CALC OSMOLALITY 276 mosm/kg (275-300); CALCIUM 7.4 mg/dL (8.5-10.1); CARBON DIOXIDE 30.9 mmol/L (21.0-32.0); CHLORIDE - SERUM 102 mmol/L (98-107); CREATININE - SERUM 0.7 mg/dL (0.6-1.3); GLUCOSE 146 mg/dL (74-106); POTASSIUM - SERUM 4.3 mmol/L (3.5-5.1); PROTEIN - SERUM 7.2 g/dL (6.4-8.2); SODIUM 138 mmol/L (136-145); UREA NITROGEN 6 mg/dL (7-18); eGFR NON AFRICAN AMERICAN > 90 mL/min (90-120)
[2016-09-13 04:14] LABS: INR 1.08 (0.85-1.17); PROTIME 13.8 SECONDS (11.6-15.0)
--- NOTE | 2016-09-13 05:00 | NUR ---
C/O PAIN STILL, NO PAIN MEDS AVAILABLE ATT, WILL MONITOR PAIN LEVELS, REFUSES DIRECTOR OF BUSINESS CONTINUITY STILL. WILL CPOC.
--- NOTE | 2016-09-13 07:32 | NUR ---
AWAKE IN BED AT THIS TIME. NO ACUTE DISTRESS NOTED. PT NOTED TO STATE HE IS IN PAIN TOHIS ABDOMEN AND BACK LEVEL OF 10. RECIEVES PRN PAIN MEDS AND REFUSES MARKETING SALES REPRESENTATIVE. PT ALERT AND ORIENTED. WILL CONTACT PHYSICIAN TO SEE IF CAN GET ANYTHING PRN FOR DT SUCH ATIVAN. WILL CONTINUE PLAN OF CARE.
--- NOTE | 2016-09-13 09:31 | NUR ---
DR BUITRAGO HERE. ORDERS PLACED.
--- NOTE | 2016-09-13 11:34 | NUR ---
DR OVALLE IN ROOM AT THIS TIME TO DO PTS EGD WITH TIVA. CONSENTS HAVE BEEN SIGNED. PT DENIES ANY QUESTIONS OR CONCERNS. WILL CONTINUE PLAN OF CARE.
--- NOTE | 2016-09-13 11:37 | NUR ---
NOTED SHAKING HAS DECREASED SINCE PT HAS RECIEVED PRN ATIVAN.
--- NOTE | 2016-09-13 12:59 | NUR ---
NAUSEA AND VOMITING NOTED. PT TOOK A FEW BITES OF ICE CREAM AND PUDDING AND THEN EMESIS NOTED AFTER INTAKING. PRN ZOFRAN ADMIN AT THIS TIME. WILL ALSO ADMIN PRN MEDS FOR DISCOMFORT PER REQUEST WELL PRN ATIVAN FOR DT. WILL CONTINUE PLAN OF CARE.
--- NOTE | 2016-09-13 15:55 | NUR ---
LYING IN BED WATCHING TV AT THIS TIME. NO ACUTE DISTRESS NOTED. PT STILL NOTED TO HAVE SOME DISCOMFORT TO ABDOMEN AND BACK, PRN PAIN MEDS ADMIN, PT STILL STATES HE DOES NOT STAY CUTTER. NO ACUTE DISTRES NOTED. WILL CONTINUE PLAN OF CARE.
--- NOTE | 2016-09-13 18:14 | NUR ---
UP IN BED WATCHING TV AT THIS TIME. NO ACUTE DISTRESS NOTED. WILL CONTINUE PLAN OF CARE.
--- NOTE | 2016-09-13 18:22 | NUR ---
NOTED PT COMPLAINT OF ITCHING. CALLED DR BUITRAGO. ORDER RECIEVED FOR BENADRYL 25MG IV Q8H PRN. WILL PLACE ORDER.
--- NOTE | 2016-09-13 19:30 | NUR ---
REPORT RECIEVED. SHIFT ASSESSMENT COMPLETE. ORIENTED TO PERSON, PLACE, TIME AND SITUATION. PT IS SITTING UP IN BED SHAKING AND GUARDING HIS STOMACH. HE STATES THAT HE HAS PAIN IN HIS STOMACH 8/10. ADMINISTERED PRN PAIN MEDICATION AND REPOSITIONED PT FOR COMFORT. ACTIVE DT PRESENT. HEARING AIDS IN BOTH EARS. SMALL CUT OR LESION ON PT TONGUE. RADIAL AND PEDAL PULSES PALP. S1S2 AUDIBLE. CLEAR LUNG SOUNDS THROUGHOUT ALL LOBES. BS ACTIVE X4. ABD TENDER TO TOUCH. SKIN IS WARM, DRY AND PINK. L AND R GREAT TOE THERE ARE SKIN TEARS. NON-SKID SOCKS ON. PT STATES THAT HE WANTS HIS SISTER'S NUMBER ERASED FROM THE BOARD AND THAT HE DOES NOT WANT US TO CALL HER. PT REFUSED POWERHOUSE MECHANIC HELPER PUMP. HE STATES THAT WE "KEEP PUSHING IT AND THAT HE DOES NOT WANT IT." I INFORMED HIM THAT WE ARE NOT TRYING TO PUSH MEDICATION ON HIM AT ALL AND ARE SIMPLY REMINDING HIM THAT HE HAS IT AVAILABLE IF THE PAIN GETS TO A POINT TO WHERE IT IS UNBAREABLE WITH HIS PRN MEDS. PT STATES THAT HE UNDERSTANDS. CALL LIGHT IN REACH. BED IN LOWEST POSITION. REFILLED HIS DRINK PER REQUEST. WILL CONTINUE TO MONITOR.
--- NOTE | 2016-09-13 21:20 | NUR ---
PT SITTING UP IN BED AND STATES THAT HE IS HAVING HEART BURN AND WANTS SOME ICE CREAM. DELIVERED PT ICE CREAM PER REQUEST. HE WAS ALSO TRYING TO FIX HIS GLASSES THE R SIDE OF THE GLASS POPPED OUT. I TRIED WELL AND FIXED IT TO A POINT, BUT THE GLASS IS STILL UNSTABLE. CALL LIGHT IN REACH. BED IN LOWEST POSITION. WILL CONTINUE TO MONITOR.
--- NOTE | 2016-09-13 22:35 | NUR ---
PT STATES THAT HE IS IN 8/10 PAIN AT THE MOMENT. HIS BACK AND ABD ARE BOTHERING HIM. ADMINISTERED PRN PAIN MEDICATION, REFILLED DRINK, REPOSITIONED FOR COMFORT. PT DENIES ANY FURTHER REQUEST. WILL REASSESS PAIN PROMPTLY.
--- NOTE | 2016-09-13 23:30 | NUR ---
REASSESSMENT COMPLETE. PT STATES THAT HIS PAIN IS STILL AN 8/10. ADMINISTERED PRN PAIN MED. PARTIAL LINEN CHANGE. REPOSITIONED FOR COMFORT. PILLOW STUFFED UNDER BACK PER REQUEST. PT DENIES ANY FURTHER REQUEST. VSS. WILL CONT WITH POC.
[2016-09-14] VITALS (14 sets, daily range): BP systolic 112–151; BP diastolic 75–99; Ht 175.3 cm; Wt 72.5 kg
--- NOTE | 2016-09-14 01:30 | NUR ---
PT AWAKE AND ALERT REQUESTING MILK AND A SNACK. DELIVERED SNACK TO HIM. PT IS STATING THAT HIS PAIN IS STILL AN 8/10. REPOSITIONED FOR COMFORT, LIGHT OUT, COVERS ON. PT DENIES ANY FURTHER REQUESTS. WILL CONTINUE TO MONITOR.
--- NOTE | 2016-09-14 03:00 | NUR ---
PT DEMANDING PAIN MEDS. ADMIN ONE OF THE PRN PAIN MEDS AND BENADRYL FOR ITCHING. APPLIED TOVA'S BUTT PASTE TO BUTT. SMALL RED SPOT NOTED. PT IS SHAKING IN BED AND STATING THAT HE IS VERY HOT. PULLED BACK SHEETS AND COVERS. REPOSTIIONED HIM FOR COMFORT. REFILLED HIS DRINK. REASSESSMENT COMPLETE. NO CHANGES NOTED. VSS. WILL CONTINUE TO [facility].
--- NOTE | 2016-09-14 05:10 | NUR ---
PT STATED AT 0440 THAT HE WAS VERY ANXIOUS AND WANTED HIS "LAST ROUND" OF PAIN MEDS. ADMINISTERED PRN ATIVAN. PT IS NOW RESTING PEACEFULLY ON HIS L SIDE WITH NO S/S OF DISTRESS NOTED. VSS. WILL CONTINUE TO MONITOR. CALL LIGHT IN REACH.
[2016-09-14 05:14] LABS: BASOPHILS 0 % (0-2); EOSINOPHILS 2.5 % (0-7); HEMATOCRIT 34.2 % (42.0-54.0); HEMOGLOBIN 11.4 g/dL (13.5-17.5); IMMATURE GRANULOCYTES 0.3 % (0-5); LYMPHOCYTES 38.7 % (15-50); MCH 31.6 pg (26.0-34.0); MCHC 33.3 g/dL (31.0-37.0); MCV 94.7 fL (80.0-100.0); MEAN PLATELET VOLUME 9.5 fL (7.4-10.4); MONOCYTES 12.3 % (2-11); NEUTROPHILS 46.2 % (40-80); PLATELET COUNT 91 10x3/uL (130-400); RBC 3.61 10x6/uL (4.20-6.10); RDW 14.7 % (11.5-14.5)
[2016-09-14 05:15] LABS: WBC 3.3 10x3/uL (4.8-10.8)
[2016-09-14 05:18] LABS: ALBUMIN 3.1 g/dL (3.4-5.0); ALKALINE PHOSPHATASE 103 U/L (46-116); CALCIUM 7.4 mg/dL (8.5-10.1); CARBON DIOXIDE 32.5 mmol/L (21.0-32.0); CHLORIDE - SERUM 102 mmol/L (98-107); CREATININE - SERUM 0.7 mg/dL (0.6-1.3); GLUCOSE 116 mg/dL (74-106); POTASSIUM - SERUM 3.8 mmol/L (3.5-5.1); PROTEIN - SERUM 6.4 g/dL (6.4-8.2); SODIUM 138 mmol/L (136-145); eGFR NON AFRICAN AMERICAN > 90 mL/min (90-120)
[2016-09-14 05:20] LABS: ALT (SGPT) 161 U/L (10-68); CALC OSMOLALITY 273 mosm/kg (275-300); UREA NITROGEN 4 mg/dL (7-18)
[2016-09-14 05:40] LABS: PLATELET ESTIMATE DECREASED
--- NOTE | 2016-09-14 08:53 | NUR ---
PT REPORTING PAIN 8/10 ON BACK AND UNDER RIB CAGE. DEMEROL 50MG IV GIVEN. ATIVAN 1MG GIVEN IV. PT CURRENTLY REMOVED GOWN AND FANING HIMSELF WITH IT. HANDS A VERY SHAKY. WILL CONTINUE TO MONITOR PAIN. CALL LIGHT IN REACH.
--- NOTE | 2016-09-14 10:19 | NUR ---
PT ASKED FOR PAIN MEDICINE. RATED PAIN 8/10. HANDS STILL VERY SHAKY. HE'S AWAKE AND ALERT. GAVE DALAUDID IV PER ORDERS.
--- NOTE | 2016-09-14 10:50 | NUR ---
PADMAJA GUTIERREZ. GAVE ATIVAN 1MG IV PER ORDERS.
--- NOTE | 2016-09-14 11:12 | NUR ---
DR. BUITRAGO SPOKE WITH PATIENT. HE STATED THAT HE MIGHT BE READY TO GO TO A REGULAR ROOM.
--- NOTE | 2016-09-14 11:42 | NUR ---
PT ASKED IF DR. BUITRAGO WAS SERIOUS ABOUT GETTING HIM A BEER. IF HE WAS HE DID WANT A BEER. "ANYTHING TO HELP STOP THIS SHAKING". SPOKE WITH DR. BUITRAGO AND HE ORDER 1 BEER EVERY 12 HOURS.
--- NOTE | 2016-09-14 13:26 | NUR ---
PT SHAKING A LOT. LIBRIUM GIVEN PER ORDERS. PT STATES THAT HE FEELS ANXIOUS. ATIVAN ALREADY GIVEN.
--- NOTE | 2016-09-14 14:36 | NUR ---
TREMORS HAVE DECREASED. PT WANTING TO MAKE A CALL TO RUMA EVERETT. TRIED CALLING HER BUT GOT A BUSY SIGNAL. WILL TRY AGAIN IN A FEW MINUTES.
--- NOTE | 2016-09-14 18:54 | NUR ---
PT REPORTS PAIN 11/01. DILAUDID GIVEN PER ORDERS.
--- NOTE | 2016-09-14 19:45 | NUR ---
PT REQUESTING TO SHAVE. ELECTRIC RAZOR GIVEN TO PT. SHIFT ASSESSMENT COMPLETE. PT ALERT AND ORIENTED X3 WITH NO SIGNS OF DISTRESS NOTED. 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 SMALL CUT ON L SIDE OF TONGUE. SKIN TEARS BILAT ON GREAT TOES. S1S2 AUDIBLE, NORMAL SINUS RHYTHM. RR REGULAR WITH CLEAR LUNG SOUNDS THROUGHOUT ALL LOBES. PT IS GUARDING HIS STOMACH AND STATES THAT HE IS EXPERIENCING PAIN THAT RATES A 9/10. HE ALSO COMPLAINS OF BACK PAIN. REPOSITIONED HIM ON HIS R SIDE WITH PILLOW UNDERNEATH BACK. ADMINISTERED PRN PAIN MEDICATIONS. BOWEL SOUNDS ACTIVE X4. RADIAL AND PEDAL PULSES PALP. PT REQUESTED BED TIME SNACK. DELIVERED THAT IN A PROMPT [facility]ANN[facility]. PT DENIES ANY FURTHER REQUEST AT THIS TIME.
--- NOTE | 2016-09-14 21:00 | NUR ---
PT IS SITTING UP IN BED WATCHING TV. NO SIGNS OF DISTRESS NOTED. PT DENIES ANY NEEDS AT THIS TIME. WILL CONTINUE TO MONITOR.
--- NOTE | 2016-09-14 23:45 | NUR ---
PT SITTING UP IN BED DEMANDING HIS PAIN MEDS. I ASKED WHAT HIS PAIN WAS AND HE STATED A 9-10/10 ON HIS BACK AND HIS ABD. ADMINISTERED PRN PAIN MEDS. REPOSTIONED FOR COMFORT. REFILLED DRINK PER REQUEST. CALL LIGHT IN REACH. BED IN LOWEST POSITION. WILL CONTINUE TO MONITOR.
--- NOTE | 2016-09-15 01:45 | NUR ---
PT SITTING UP IN BED SHAKING AND STATES THAT HE IS NAUSEATED. ADMIN PRN MEDS. REPOSITIONED FOR COMFORT. PT STATES THAT HE WANTS HIS LIGHT OUT AND THAT HE WANTS TO GO TO SLEEP. TURNED OFF LIGHT, CALL LIGHT IN REACH. WILL CONTINUE TO MONITOR.
[2016-09-15 03:00] VITALS: BP 110/72
--- NOTE | 2016-09-15 03:30 | NUR ---
PT DEMANDS PAIN MEDS AND REFRESHMENTS. HE RATES HIS PAIN A 9-10/10 IN HIS ABD AND BACK. REPOSITIONED PILLOW UNDER BACK. COVERS PULLED UP PER REQUEST. REFRESHMENTS GIVEN TO PT. HE DENIES ANY FURTHER REQUESTS. VSS. WILL CONTINUE TO MONITOR.
[2016-09-15 04:16] LABS: BASOPHILS 0 % (0-2); EOSINOPHILS 3.8 % (0-7); HEMATOCRIT 35.8 % (42.0-54.0); HEMOGLOBIN 12.1 g/dL (13.5-17.5); IMMATURE GRANULOCYTES 0.2 % (0-5); LYMPHOCYTES 34.2 % (15-50); MCHC 33.8 g/dL (31.0-37.0); MCV 94.7 fL (80.0-100.0); MEAN PLATELET VOLUME 9.9 fL (7.4-10.4); MONOCYTES 12.1 % (2-11); NEUTROPHILS 49.7 % (40-80); PLATELET COUNT 99 10x3/uL (130-400); RBC 3.78 10x6/uL (4.20-6.10); RDW 14.5 % (11.5-14.5); WBC 4.2 10x3/uL (4.8-10.8)
[2016-09-15 04:26] LABS: ALBUMIN 3.5 g/dL (3.4-5.0); ALKALINE PHOSPHATASE 111 U/L (46-116); ALT (SGPT) 163 U/L (10-68); BILIRUBIN - TOTAL 0.45 mg/dL (0.2-1.3); CALC OSMOLALITY 276 mosm/kg (275-300); CARBON DIOXIDE 32.2 mmol/L (21.0-32.0); CHLORIDE - SERUM 103 mmol/L (98-107); CREATININE - SERUM 0.7 mg/dL (0.6-1.3); GLUCOSE 115 mg/dL (74-106); LIPASE 55 U/L (73-393); POTASSIUM - SERUM 3.8 mmol/L (3.5-5.1); PROTEIN - SERUM 7.2 g/dL (6.4-8.2); SODIUM 140 mmol/L (136-145); UREA NITROGEN 4 mg/dL (7-18); eGFR NON AFRICAN AMERICAN > 90 mL/min (90-120)
--- NOTE | 2016-09-15 05:00 | NUR ---
PT RESTING IN BED PEACEFULLY AT THIS TIME. WHEN I WENT IN TO CHECK ON HIM HE RAISED UP OUT OF BED AND ASKED FOR HIS PAIN MEDICINE B/C OF SEVERE BACK AND ABD PAIN. ADMINISTERED PRN PAIN MEDS. PT LYING BACK IN BED. WILL CONT WITH POC.
[2016-09-15 07:00] VITALS: BP 143/89
--- NOTE | 2016-09-15 07:31 | NUR ---
PT REPORTED PAIN 08/31. DILAUDID GIVEN PER ORDERS. BREAKFAST TRAY IN ROOM.
--- NOTE | 2016-09-15 10:14 | PRO ---
PATIENT:SID LEW MEDICAL RECORD: [id number] : [birth year] LOCATION:.[facility] D.2304 ADMISSION DATE: 09/12/16 PROCEDURE PERFORMED BY: LORRIE LANCASTER MD PROCEDURE DATE: 09/12/16 DATE OF PROCEDURE: 09/13/2016 SURGERY SPECIALIST: Lorrie Lancaster MD PROCEDURE: EGD with biopsy. INDICATION: The patient is a 60-year-old white male with longstanding history of alcohol binging, who was admitted through the ER with vague and diffuse abdominal pain, nausea, vomiting with mild hematemesis and questionable melena over the past couple of days. His hematocrit is okay at about 40. Liver enzymes are remarkable for his AST and ALT both about 250, but otherwise normal. Acute abdominal series is negative. He has no past history of GI bleeding. He is actually from [place] who is down visiting because his mother recent . He had been drinking at least a 12-pack of beer a day. He is now for EGD. PREMEDICATION: Taper anesthesia. INSTRUMENT: Olympus video gastroscope. FINDINGS: The endoscope was passed through the oropharynx to the second portion of the duodenum without difficulty. The esophagus, stomach, and duodenum were basically unremarkable other than minimal hemorrhagic gastritis in the fundus and proximal body of the stomach with 1 slightly friable polyp right in the cardia of the stomach. Biopsy obtained from throughout the stomach to rule out H. pylori by means of histology. The duodenum was entered and was completely normal. There was no evidence of any esophageal varices, gastric varices, active esophagitis, ulcer disease, etc. The patient tolerated the procedure well without any complication. IMPRESSION: 1. Minimal hemorrhagic gastritis associated with a small somewhat friable polyp in the cardia of the stomach status post biopsy. 2. Otherwise, normal esophagogastroduodenoscopy. RECOMMENDATIONS: 1. Protonix 40 mg twice daily for now. 2. Also, encouraged the patient to stop drinking. 3. Carafate for now. 4. Follow up biopsy results. 5. DT precautions. 6. If his abdominal pain continues despite above, consider CT of the abdomen and pelvis. TRANSINT:[id number] Voice Confirmation ID: [id number] DOCUMENT ID: [id number] PROCEDURE NOTE [id number] VIPINSID LORRIE LANCASTER MD at 1014 CC: HARRIETT BUITRAGO MD and RADHA ELIAS DO [id number] DICTATION DATE: 09/13/16 1202 GASOLINE SERVICE ATTENDANT: 09/13/162019 ADM IN [facility] [address] [place] [address]
--- NOTE | 2016-09-15 10:14 | CN ---
PATIENT NAME:SID LEW MEDICAL RECORD: [id number] : [birth year] LOCATION:[id number] ADMIT DATE: 09/12/16 ACCOUNT: [id number] CONSULTING PHYSICIAN: LORRIE OVALLE MD REFERRING PHYSICIAN: ROHIT BUITRAGO MD DATE OF CONSULTATION: 09/13/2016 Gastroenterology Consultation REFERRING PHYSICIAN: Rohit Buitrago MD ELECTRIC LINEMAN: Radha Davidson DO as an unassigned patient. HISTORY OF PRESENT ILLNESS: The patient is a 60-year-old white male with long history of alcohol abuse, basically was admitted with a 2-day history of vague, diffuse abdominal pain and hematemesis. He also describes some melena. Apparently lives in the [place]. He is down in [place] because his mother recently . He has been drinking at least 30 pack of beer every day or 2 as well as been a longtime smoker. He was admitted for further evaluation. PAST MEDICAL HISTORY: Basically negative other than the above. HOME MEDICATIONS: None. SOCIAL HISTORY: The patient is a longtime drinker and smoker as noted above. REVIEW OF SYSTEMS: Noncontributory. PHYSICAL EXAMINATION: GENERAL: Reveals a middle-aged white male, who looks like he might be in DTs. He is shaking quite a bit. VITAL SIGNS: Stable. He is afebrile. CHEST: Clear. HEART: Regular rate and rhythm. ABDOMEN: Soft with mild diffuse tenderness. EXTREMITIES: No edema. LABORATORY DATA: Reveals normal electrolytes, BUN is only 8, creatinine 0.6. AST 270, ALT 269, total bilirubin 0.4, albumin 4.0, amylase and lipase are normal. INR is 1.2. White cell count 6000, hematocrit 43, MCV of 93. Ammonia levels 54. Acute abdominal series is negative. IMPRESSION: 1. Mild hematemesis and vague abdominal pain of uncertain etiology probably due to reflux-induced esophagitis. Cannot rule out esophageal varices or ulcer disease, but this would be less likely. 2. History of alcohol abuse. It looks with high risk for delirium tremens. 3. History of tobacco abuse. PLAN: 1. IV Protonix and IV Sandostatin for now. 2. Serial hematocrits. 3. DT precautions. 4. EGD. CONSULT REPORT [id number] SID LEW TRANSINT:[id number] Voice Confirmation ID: [id number] DOCUMENT ID: [id number] LORRIE OVALLE MD at 1014 CC: ROHIT BUITRAGO MD and RADHA DAVIDSON DO [id number] DICTATION DATE: 09/13/16 1139 INSPECTOR AGRICULTURAL COMMODITIES: 09/13/16 1227 ADM IN [facility] [address] [id number]
--- NOTE | 2016-09-15 11:10 | NUR ---
PT GETTING MRI PROCEDURE AT THIS TIME.
--- NOTE | 2016-09-15 11:14 | NUR ---
PT BACK FROM MRI. ASKING FOR PAIN MEDICINE.
--- NOTE | 2016-09-15 11:35 | NUR ---
REPORT CALLED TO MED 2. PT READY FOR TRANSFER.
--- NOTE | 2016-09-15 11:40 | NUR ---
RECEIVED PATIENT VIA WHEELCHAIR TO ROOM 2129 FROM ICU. PATIENT ALERT/ORIENTED. CALL LIGHT PLACED WITHIN REACH. RIGHT CHEST TRIPLE LUMEN SUBCLAVIAN. PATIENT NOTED TO HAVE TREMORS AT THIS TIME. RESP EVEN AND UNLABORED.
--- NOTE | 2016-09-15 11:51 | NUR ---
MEDICATED WITH ATIVAN FOR TREMORS FROM DT'S AT THIS TIME.
--- NOTE | 2016-09-15 13:29 | NUR ---
PATIENT CONTINUES TO GET OOB. PATIENT OOB AND PUT STREET CLOTHES ON. PATIENT WASHING HIS SOCKS OUT IN THE SINK. PATIENT ASSISTED BACK TO BED, STREET CLOTHES REMOVED, GOWN PLACED. CALL LIGHT WITHIN REACH.
[2016-09-15 13:34] VITALS: BP 123/76
--- NOTE | 2016-09-15 13:46 | NUR ---
MEDICATED FOR PAIN, DT'S AT THIS TIME. TELEMETRY REAPPLIED. CALL LIGHT WITHIN REACH. NO DISTRESS.
[2016-09-15 14:08] LABS: HEMOGLOBIN 11.9 g/dL (13.5-17.5)
--- NOTE | 2016-09-15 15:18 | NUR ---
PATIENT CONTINUES TO TAKE TELEMETRY OFF, TRYING TO MOVE ITEMS AROUND IN HIS ROOM. PATIENT HAS POOR ATTITUDE. PATIENT REQUESTING TO BE SHAVED. OFFERED TO SHAVE PATIENT. PATIENT STATES HE CAN SHAVE HIMSELF. THIS DITCH RIDER ADVISED PATIENT THAT WITH THE TREMORS HE CONTINUES TO HAVE, IT IS NOT SAFE.
--- NOTE | 2016-09-15 15:35 | NUR ---
SHAVED PATIENT AT THIS TIME AND ASSISTED HIM BACK TO BED. CALL LIGHT WITHIN REACH. NO DISTRESS.
[2016-09-15 16:38] VITALS: BP 134/81
--- NOTE | 2016-09-15 16:50 | NUR ---
PAGECarley HERNANDEZ FOR CONTINUATION ORDERS FOR DILAUDID. DILAUDID FELL OFF OF PATIENTS EMAR AFTER 72 HOURS.
--- NOTE | 2016-09-15 17:00 | NUR ---
RECEIVED ORDERS FROM TO CONTINUE WITH DILAUDID ORDER. ORDERS ENTERED.
--- NOTE | 2016-09-15 17:07 | NUR ---
MEDICATED FOR PAIN AT THIS TIME. NO DISTRESS.
--- NOTE | 2016-09-15 17:49 | NUR ---
MEDICATED FOR TREMORS AT THIS TIME.
[2016-09-15 21:02] VITALS: BP 149/96
[2016-09-16 01:00] VITALS: BP 112/65
[2016-09-16 04:21] VITALS: BP 138/93
[2016-09-16 07:51] LABS: BASOPHILS 0 % (0-2); HEMATOCRIT 35.7 % (42.0-54.0); HEMOGLOBIN 11.9 g/dL (13.5-17.5); IMMATURE GRANULOCYTES 0.3 % (0-5); LYMPHOCYTES 44.8 % (15-50); MCH 32.1 pg (26.0-34.0); MCHC 33.3 g/dL (31.0-37.0); MCV 96.2 fL (80.0-100.0); MEAN PLATELET VOLUME 10.3 fL (7.4-10.4); MONOCYTES 7.9 % (2-11); PLATELET COUNT 105 10x3/uL (130-400); RBC 3.71 10x6/uL (4.20-6.10); RDW 14.8 % (11.5-14.5); WBC 3.2 10x3/uL (4.8-10.8)
[2016-09-16 08:00] VITALS: BP 150/94
[2016-09-16 08:06] LABS: ALBUMIN 3.1 g/dL (3.4-5.0); ALKALINE PHOSPHATASE 90 U/L (46-116); CALC OSMOLALITY 281 mosm/kg (275-300); CALCIUM 8.6 mg/dL (8.5-10.1); CARBON DIOXIDE 32.4 mmol/L (21.0-32.0); CHLORIDE - SERUM 105 mmol/L (98-107); CREATININE - SERUM 0.8 mg/dL (0.6-1.3); GLUCOSE 134 mg/dL (74-106); POTASSIUM - SERUM 3.8 mmol/L (3.5-5.1); PROTEIN - SERUM 6.4 g/dL (6.4-8.2); SODIUM 142 mmol/L (136-145); UREA NITROGEN 3 mg/dL (7-18); eGFR NON AFRICAN AMERICAN > 90 mL/min (90-120)
[2016-09-16 08:09] LABS: ALT (SGPT) 119 U/L (10-68)
--- NOTE | 2016-09-16 08:15 | NUR ---
PT LAYING IN BED WITH COVERS OVER HIS HEAD SAYING HE JUST HURTS ALL OVER WILL ALEXANDER
--- NOTE | 2016-09-16 08:22 | NUR ---
RESTS IN BED EATING BRK. NO NEEDS VOICED. CALL LIGHT IN REACH. WILL CONT. PLAN OF CARE.
--- NOTE | 2016-09-16 12:02 | NUR ---
PT RESTING IN BED WITH EYES OPEN CALL LIGHT IN REACH WILL MONITER
--- NOTE | 2016-09-16 12:02 | NUR ---
PT RESTING IN BED WITH EYES OPEN CALL LIGHT IN REACH WILL MONITER
[2016-09-16 12:43] VITALS: BP 131/83
[2016-09-16 16:00] VITALS: BP 121/99
--- NOTE | 2016-09-16 17:39 | NUR ---
Patient Name: FAUSTO BARAKAT Admission Status: ER Accout number: [id number] Admission Date: 09-12-2016 : 1960 Admission Diagnosis:ACUTE GASTRITIS WITH BLEEDING Attending: IFTIKHAR Current LOS: 4 Anticipated DC Date: 09-17-2016 Planned Disposition: Home Primary Insurance: MEDICAID [place] Discharge Planning Comments: * Is the patient Alert and Oriented? Yes 0 * How many steps to enter\exit or inside your home? 0 0 * PCP SEEMA BARR 0 * [facility] 0 * Preadmission Environment Home Alone 0 * ADLs Independent 0 * Equipment Other 0 * Other Equipment HEARING AIDS, BOTH EARS NO MEDICAL EQUIPMENT PROVIDER PREFERENCE 0 * List name and contact numbers for known caregivers / representatives who currently or will assist patient after discharge: VERNA BARAKAT, SPOUSE, 0 * Community resources currently utilized None 0 * Please name any agencies selected above. NONE 0 * Additional services required to return to the preadmission environment? No 0 * Can the patient safely return to the preadmission environment? Yes 0 * Has this patient been hospitalized within the prior 30 days at any hospital? No 0 CM SPOKE TO PT'S BESIDE NURSE WHO INFORMED CM THAT PT WAS TEARFULLY ADMITTING TO USING ANOTHER [facility] TO REGISTER IN THE HOSPITAL AND WANTED TO GET THINGS STRAIGHTENED OUT. CM NOTIFED TYESHA OF CASE MANAGEMENT DIRECTOR DREAMER WAS NOT AVAILABLE AT TIME OF CM'S CALL. CM NOTIFIED NIMESH IN THE BUSINESS OFFICE. CM NOTIFED LAB SERVICES OF THE REGISTRATION ISSUE. CM NOTIFIED SHARON OF [facility] SO THAT HE COULD ASSIST WITH GETTING ELECTRONIC RECORD CORRECTED. CM MET WITH PT AND SPOUSE IN ROOM TO DISCUSS DISCHARGE PLANNING AND NEEDS. PT REPORTS LIVING AT HOME INDEPENDENTLY AND ALONE. PT HAS NO MEDICAL EQUIPMENT OTHER THAN HIS HEARING AIDS AND REPORTS HE BEGAN LOSING HIS HEARING A CHILD. PT HAS NO OUTSIDE SERVICES ASSISTING IN THE HOME. CM DISCUSSED AVAILABILITY OF HOME HEALTH, REHAB SERVICES AND MEDICAL EQUIPMENT. PT DENIES DISCHARGE NEEDS, REPORTS SPOUSE WILL PICK HIM UP FOR DISCHARGE HOME. PT REPORTS HE USED HIS BROTHER'S INFORMATION, SID LEW, TO REGISTER IN THE HOSPITAL AND IT WAS A MISTAKE. PT CONTINUED TO APOLOGIZE. CM VERIFIED PT'S ACTUAL INFORMATION FOR REGISTRATION, OBTAINED COPIES OF DRIVERS LICENSE, SOCIAL SECURITY CARE AND MEDICAID CARD. PT STATED HE WAS THANKFUL THAT HE DOES NOT HAVE TO GO TO ALF. PT'S SPOUSE REPORTED PT TO BE BIPOLAR AND AN ALCOHOLIC AND SHE IS TRYING TO GET PT INTO [facility] FOR TREATMENT; PT'S SPOUSE HAS THE CONTACT INFORMATION FOR THE PROGRAM. PT REPORTS DRINKING A 30 PACK OF 24 OUNCH BUD ICE BEERS EVERY TWO DAYS, HIS LAST DRINK WAS THE DAY HE CAME INTO THE HOSPITAL. PT'S LAST PERIOD OF SOBRIETY WAS WHEN HE WAS IN [facility] FOR 30 DAYS AND IMMEDIATELY, WITHIN HOURS, BEGAN DRINKING WHEN HE LEFT THE PROGRAM. PT REPORTS HAVING BEEN IN MANY PROGRAMS WITHOUT SUCCESS. PT DOES NOT PARTICIPATE IN OUTPATIENT OR SUPPORT GROUP MEETINGS, HE IS AWARE OF THE MEETINGS AND LOCATIONS. CM ASKED PT IF HE WAS INTERESTED IN TREATMENT, PT DID NOT ANSWER. PT'S SPOUSE REPORTED SHE KNOWS PT MUST BE WILLING. CM PROVIDED PT A LISTING OF TREATMENT OPTIONS AND COMMUNITY SUPPORT ORGANIZATIONS FOR [place], ENCOURAGED PT TO CALL IF HE WANTS TREATMENT. CM PROVIDED PT'S INFORMATION TO [facility] OF ADMISSIONS. PT PLANS TO DISCHARGE HOME ALONE AT DISCHARGE, HAS NOT COMMITTED TO ANY TREATMENT FOR ALCOHOLISM AND DENIES NEEDS AT THIS TIME. Recycle Worker: Lencho Liu
--- NOTE | 2016-09-16 19:45 | NUR ---
ASSESSMENT COMPLETE PER FLOWSHEET. VOICES NO CO AT TIME.
[2016-09-16 20:00] VITALS: BP 142/97
--- NOTE | 2016-09-16 21:00 | NUR ---
UP TO BATHROOM TO VOID.
--- NOTE | 2016-09-17 | NUR ---
UP IN ROOM NO CO AT TIME.
--- NOTE | 2016-09-17 02:00 | NUR ---
UP IN ROOM VOICES NO CO AT TIME.
[2016-09-17 04:20] VITALS: BP 155/93
[2016-09-17 05:05] LABS: BASOPHILS 0.3 % (0-2); EOSINOPHILS 3.5 % (0-7); HEMATOCRIT 36.1 % (42.0-54.0); HEMOGLOBIN 11.9 g/dL (13.5-17.5); IMMATURE GRANULOCYTES 0.3 % (0-5); LYMPHOCYTES 45.5 % (15-50); MCH 31.7 pg (26.0-34.0); MCV 96.3 fL (80.0-100.0); MEAN PLATELET VOLUME 9.9 fL (7.4-10.4); MONOCYTES 11.4 % (2-11); PLATELET COUNT 107 10x3/uL (130-400); RBC 3.75 10x6/uL (4.20-6.10); RDW 14.8 % (11.5-14.5)
--- NOTE | 2016-09-17 05:06 | NUR ---
SLEEPING NO DISTRESS NOTED. SR UP X 2.
[2016-09-17 05:20] LABS: ALBUMIN 3.2 g/dL (3.4-5.0); ALKALINE PHOSPHATASE 85 U/L (46-116); ALT (SGPT) 104 U/L (10-68); BILIRUBIN - TOTAL 0.35 mg/dL (0.2-1.3); CALC OSMOLALITY 285 mosm/kg (275-300); CALCIUM 8.1 mg/dL (8.5-10.1); CHLORIDE - SERUM 106 mmol/L (98-107); CREATININE - SERUM 0.8 mg/dL (0.6-1.3); GLUCOSE 132 mg/dL (74-106); POTASSIUM - SERUM 3.8 mmol/L (3.5-5.1); PROTEIN - SERUM 6.6 g/dL (6.4-8.2); SODIUM 144 mmol/L (136-145); eGFR NON AFRICAN AMERICAN > 90 mL/min (90-120)
[2016-09-17 05:23] LABS: UREA NITROGEN 5 mg/dL (7-18)
--- NOTE | 2016-09-17 05:58 | NUR ---
SLEEPING NO DISTRESS NOTED. SR UP X 2.
[2016-09-17 08:00] VITALS: BP 131/78
--- NOTE | 2016-09-17 08:14 | NUR ---
AM MEDS GIVEN AND 1MG OF DIALUDID FOR PAIN LEVEL OF 8/10, ALSO ADMINISTERED 1MG OF ATIVAN PER PT REQUEST. PT UP TO SIDE OF BED, FIXING TO EAT BREAKFAST. DENIES ANY NEEDS AT THIS TIME. CALL LIGHT IN REACH, NAD NOTED, WILL CONTINUE TO MONITOR.
--- NOTE | 2016-09-17 11:09 | NUR ---
1MG OF DILAUDID GIVEN FOR PAIN LEVEL OF 8/10. ALSO GAVE 1MG OF ATIVAN PER PT REQUEST. PT IN BED, DENIES ANY OTHER NEEDS AT THIS TIME. CALL LIGHT IN REACH, NAD NOTED, WILL CONTINUE TO MONITOR.
[2016-09-17 12:30] VITALS: BP 146/91
--- NOTE | 2016-09-17 12:59 | NUR ---
PT IN BED, WITH EYES CLOSED, CALL LIGHT IN REACH, BED LOW AND WHEELS LOCKED, NAD NOTED, WILL CONTINUE TO MONITOR.
--- NOTE | 2016-09-17 14:02 | NUR ---
Nutrition Follow Up: Pt is eating 75% meal avg on a regular diet. Wt stable. +BM 09/15/16. Labs and meds reviewed. Rec continue current diet as tolerated. RD following.
--- NOTE | 2016-09-17 14:29 | NUR ---
1MG OF DILAUDID GIVEN FOR PAIN LEVEL OF 8/10. ALSO GAVE 1MG OF ATIVAN PER PT REQUEST. PT UP AD QUINTEN IN ROOM, DENIES ANY NEEDS AT THIS ITME. CALL LIGHT IN REACH, NAD NOTED, WILL CONTINUE TO MONITOR.
[2016-09-17 15:38] VITALS: BP 118/86
--- NOTE | 2016-09-17 15:45 | NUR ---
CALLED PHARMACY AND SPOKE WITH NIESHA, INFORMED HER THAT I NEED BANANA BAG FOR PT.
--- NOTE | 2016-09-17 17:35 | NUR ---
NORCO GIVEN FOR PAIN LEVEL OF 8/10. PT IN BED, DENIES ANY NEEDS AT THIS TIME. CALL LIGHT IN REACH, NAD NOTED, WILL CONTINUE TO MONITOR.
[2016-09-17 19:00] VITALS: BP 153/89
--- NOTE | 2016-09-17 22:00 | NUR ---
ASSESSMENT COMPLETE PER FLOWSHEET. VOICES NO CO AT TIME.
[2016-09-18] VITALS: BP 153/101
--- NOTE | 2016-09-18 | NUR ---
SLEEPING NO DISTRESS NOTED. SR UP X 2.
--- NOTE | 2016-09-18 03:00 | NUR ---
SLEEPING NO DISTRESS NOTED. SR UP X 2.
[2016-09-18 04:00] VITALS: BP 167/110
--- NOTE | 2016-09-18 05:58 | NUR ---
UP TO BATHROOM NO CO AT TIME.
--- NOTE | 2016-09-18 07:25 | NUR ---
ASSESSMENT DONE. UP IN ROOM, DENIES NEEDS.
[2016-09-18 08:01] VITALS: BP 172/102
--- NOTE | 2016-09-18 09:35 | NUR ---
RESTS IN BED. AWAITING FOR DC PLANS. WILL MONITOR NEEDS.
[2016-09-18 11:52] VITALS: BP 171/108
[2016-09-18] MEDS ORDERED: CARAFATE1 G/10 ML PO (12:25)
--- NOTE | 2016-09-18 13:44 | NUR ---
D/C'D PT R.CHEST CVL LINE. TWO SUTURES REMOVED, CATH TIP FULLY INTACT. CLEANSED SITE AND APPLIED GUAZE AND TEGADERM. PT TEACHING PROVIDED AND PT VERBALIZED UNDERSTANDING TO KEEP DRSG INTACT FOR 24 HOURS AND LIE FLAT FOR 15 MINS. PT LYING FLAT AND AWAITING D/C PAPERS. NO FURTHER NEEDS AT THIS TIME. WILL CTM.
--- NOTE | 2016-09-18 14:22 | NUR ---
DC GIVEN TO PT. DC HOME PER [facility] BUS
--- NOTE | 2016-09-18 14:51 | OP ---
PATIENT NAME: FAUSTO BARAKAT MEDICAL RECORD: [id number] :[birth year] LOCATION:D. D.2128 ADMISSION DATE:09/12/16 SURGEON: MADI ALDRICH MD DATE OF OPERATION: 09/12/2016 PREOPERATIVE DIAGNOSES: 1. Need for IV access. 2. Gastrointestinal bleed. 3. Anemia of acute blood loss. 4. Nicotine dependence syndrome. 5. Alcohol abuse. POSTOPERATIVE DIAGNOSES: 1. Need for IV access. 2. Gastrointestinal bleed. 3. Anemia of acute blood loss. 4. Nicotine dependence syndrome. 5. Alcohol abuse. PROCEDURE: Left subclavian vein triple-lumen central venous line placement. SURGEON: Madi Aldrich MD REPORT OF PROCEDURE: The patient's left chest was prepped and draped in sterile fashion. A total of 5 cc of 1% lidocaine was infused into the subcutaneous tissues. A needle was used to cannulate the left subclavian vein. The guidewire was advanced with ease. Over this wire, a dilator was placed followed by the triple lumen catheter. The catheter aspirated nonpulsatile dark blood and flushed easily in all 3 ports. This was sutured into place with 3-0 silk ties and dressed appropriately. COMPLICATIONS: None. CONDITION: Stable. ANESTHESIA: Local. BLOOD LOSS: Minimal. Procedure done at the bedside. TRANSINT:[id number] Voice Confirmation ID: [id number] DOCUMENT ID: [id number] MADI ALDRICH MD at 1451 CC: [id number] DICTATION DATE: 09/12/162119 METAL TILE SETTER: 09/12/162230 DIS IN 09/18/[address] [place] [address]
== END 2016-09-18 14:23 | disposition home or self-care (01) | DRG 811 ==
LOC: D.M2 → D.ER 12:59 → EDBD 16:03 → D.ICU 16:03 → D.M2 16:03
PROVIDERS: Emergency Medicine; Internal Medicine Gastroenterology; ADMIT Family Medicine
PROC: 02HV33Z Insertion of Infusion Device into Superior Vena Cava, Percutaneous Approach (ICD-10-PCS; principal; 2016-09-12)
PROC: 0T9B70Z Drainage of Bladder with Drainage Device, Via Natural or Artificial Opening (ICD-10-PCS; 2016-09-12)
PROC: 0DB68ZX Excision of Stomach, Via Natural or Artificial Opening Endoscopic, Diagnostic (ICD-10-PCS; 2016-09-13)
DX: D62 Acute posthemorrhagic anemia (principal); K29.01 Acute gastritis with bleeding; E87.1 Hypo-osmolality and hyponatremia; F17.203 Nicotine dependence unspecified, with withdrawal; F10.231 Alcohol dependence with withdrawal delirium; K31.7 Polyp of stomach and duodenum; I10 Essential (primary) hypertension

== ENCOUNTER 2016-11-13 11:44 | Emergency (ER) | payer MEDICAID ==
[2016-09-16 16:17] VITALS: BMI 23.7
[~2016-11-13 11:44] MED LIST changes: +CARAFATE1 G/10 ML PO
== END 2016-11-13 17:38 | disposition home or self-care (01) ==
LOC: D.ER 11:44
DX: R10.9 Unspecified abdominal pain (principal); F10.129 Alcohol abuse with intoxication, unspecified; F19.939 Other psychoactive substance use, unspecified with withdrawal, unspecified; B19.20 Unspecified viral hepatitis C without hepatic coma; M32.9 Systemic lupus erythematosus, unspecified; F17.200 Nicotine dependence, unspecified, uncomplicated

== ENCOUNTER 2017-05-30 06:31 | Emergency (ER) | payer MEDICAID ==
[2016-09-16 16:17] VITALS: BMI 23.7
[2017-05-30 07:38] LABS: BASOPHILS 0 % (0-2); EOSINOPHILS 0.2 % (0-7); HEMATOCRIT 41.3 % (42.0-54.0); HEMOGLOBIN 14.3 g/dL (13.5-17.5); IMMATURE GRANULOCYTES 0.3 % (0-5); LYMPHOCYTES 21.2 % (15-50); MCH 30.6 pg (26.0-34.0); MCHC 34.6 g/dL (31.0-37.0); MCV 88.2 fL (80.0-100.0); MEAN PLATELET VOLUME 9.3 fL (7.4-10.4); MONOCYTES 6.8 % (2-11); NEUTROPHILS 71.5 % (40-80); RBC 4.68 10x6/uL (4.20-6.10); RDW 13.8 % (11.5-14.5); WBC 5.9 10x3/uL (4.8-10.8)
[2017-05-30 07:39] LABS: PLATELET COUNT 99 10x3/uL (130-400)
[2017-05-30 08:00] LABS: UDS - AMPHET NEGATIVE QUAL (NEGATIVE); UDS - BARB NEGATIVE QUAL (NEGATIVE); UDS - BENZO NEGATIVE QUAL (NEGATIVE); UDS - COCAINE NEGATIVE QUAL (NEGATIVE); UDS - OPIATE NEGATIVE QUAL (NEGATIVE); UDS - PCP NEGATIVE QUAL (NEGATIVE); UDS - THC NEGATIVE QUAL (NEGATIVE)
[2017-05-30 08:03] LABS: ALBUMIN 4.1 g/dL (3.4-5.0); ALKALINE PHOSPHATASE 109 U/L (46-116); ALT (SGPT) 139 U/L (10-68); BILIRUBIN - TOTAL 0.48 mg/dL (0.2-1.3); CALCIUM 8.9 mg/dL (8.5-10.1); CARBON DIOXIDE 21.4 mmol/L (21.0-32.0); CHLORIDE - SERUM 97 mmol/L (98-107); CREATINE KINASE 82 UL (21-232); CREATININE - SERUM 0.8 mg/dL (0.6-1.3); LIPASE 145 U/L (73-393); POTASSIUM - SERUM 4.1 mmol/L (3.5-5.1); PRO BNP 13 pg/mL (0-125); PROTEIN - SERUM 8.4 g/dL (6.4-8.2); SODIUM 136 mmol/L (136-145); UREA NITROGEN 4 mg/dL (7-18); eGFR NON AFRICAN AMERICAN > 90 mL/min (90-120)
[2017-05-30 08:05] LABS: CALC OSMOLALITY 272 mosm/kg (275-300); GLUCOSE 178 mg/dL (74-106); TROPONIN-I < 0.017 ng/mL (0.000-0.060)
== END 2017-05-30 11:30 | disposition home or self-care (01) ==
LOC: D.ER 06:31
PROVIDERS: Family Medicine
DX: F13.239 Sedative, hypnotic or anxiolytic dependence with withdrawal, unspecified (principal); R79.89 Other specified abnormal findings of blood chemistry; F10.129 Alcohol abuse with intoxication, unspecified; B19.20 Unspecified viral hepatitis C without hepatic coma

== ENCOUNTER 2017-08-10 12:02 | Emergency (ER) | payer MEDICAID ==
[~2017-08-10] VITALS: Ht 175.3 cm; Wt 72.7 kg
[~2017-08-10 12:02] MED LIST changes: +LOPRESSOR25 MG PO
[2017-08-10 12:17] VITALS: Ht 175.3 cm; Wt 72.7 kg
[2017-08-10 13:02] LABS: BASOPHILS 0.1 % (0-2); EOSINOPHILS 0.2 % (0-7); HEMATOCRIT 40.1 % (42.0-54.0); HEMOGLOBIN 14.5 g/dL (13.5-17.5); IMMATURE GRANULOCYTES 0.2 % (0-5); LYMPHOCYTES 39.1 % (15-50); MCH 30.6 pg (26.0-34.0); MCHC 36.2 g/dL (31.0-37.0); MCV 84.6 fL (80.0-100.0); MEAN PLATELET VOLUME 9.5 fL (7.4-10.4); MONOCYTES 14.7 % (2-11); NEUTROPHILS 45.7 % (40-80); PLATELET COUNT 176 10x3/uL (130-400); RBC 4.74 10x6/uL (4.20-6.10); RDW 13.9 % (11.5-14.5); WBC 9.6 10x3/uL (4.8-10.8)
[2017-08-10 13:20] LABS: ALBUMIN 4.1 g/dL (3.4-5.0); ALKALINE PHOSPHATASE 143 U/L (46-116); ALT (SGPT) 192 U/L (10-68); BILIRUBIN - TOTAL 0.76 mg/dL (0.2-1.3); CALC OSMOLALITY 270 mosm/kg (275-300); CALCIUM 9.3 mg/dL (8.5-10.1); CARBON DIOXIDE 26.4 mmol/L (21.0-32.0); CHLORIDE - SERUM 96 mmol/L (98-107); GLUCOSE 195 mg/dL (74-106); POTASSIUM - SERUM 3.4 mmol/L (3.5-5.1); PROTEIN - SERUM 8.6 g/dL (6.4-8.2); SODIUM 133 mmol/L (136-145); UREA NITROGEN 13 mg/dL (7-18); eGFR NON AFRICAN AMERICAN 82 mL/min (90-120)
[2017-08-10] MEDS ORDERED: CODEINE SULFATE30 MG PO (15:55)
[2017-08-10 16:40] VITALS: BP 143/87
== END 2017-08-10 16:41 | disposition home or self-care (01) ==
LOC: D.ER 12:02
PROVIDERS: Emergency Medicine
DX: R10.9 Unspecified abdominal pain (principal); R79.89 Other specified abnormal findings of blood chemistry; E87.6 Hypokalemia

== ENCOUNTER 2018-03-25 15:39 | Emergency (ER) | payer MEDICAID ==
[~2018-03-25] VITALS: Ht 175.3 cm; Wt 72.7 kg
[~2018-03-25 15:39] MED LIST changes: +CODEINE SULFATE30 MG PO
[2018-03-25 15:43] VITALS: Ht 175.3 cm; Wt 72.7 kg
[2018-03-25 17:20] LABS: APTT 22.6 SECONDS (22.8-39.4); INR 0.98 (0.85-1.17); PROTIME 12.5 SECONDS (11.6-15.0)
[2018-03-25 17:25] LABS: ALBUMIN 3.1 g/dL (3.4-5.0); ALKALINE PHOSPHATASE 86 U/L (46-116); ALT (SGPT) 88 U/L (10-68); CALC OSMOLALITY 279 mosm/kg (275-300); CALCIUM 8.9 mg/dL (8.5-10.1); CARBON DIOXIDE 26.1 mmol/L (21.0-32.0); CHLORIDE - SERUM 103 mmol/L (98-107); CREATININE - SERUM 0.8 mg/dL (0.6-1.3); POTASSIUM - SERUM 4.3 mmol/L (3.5-5.1); SODIUM 140 mmol/L (136-145); UREA NITROGEN 11 mg/dL (7-18); eGFR NON AFRICAN AMERICAN > 90 mL/min (90-120)
[2018-03-25 17:27] LABS: GLUCOSE 140 mg/dL (74-106)
[2018-03-25 17:29] LABS: BASOPHILS 0 % (0-2); EOSINOPHILS 0.7 % (0-7); HEMATOCRIT 37.7 % (42.0-54.0); HEMOGLOBIN 12.6 g/dL (13.5-17.5); IMMATURE GRANULOCYTES 0.1 % (0-5); LYMPHOCYTES 24.3 % (15-50); MCH 30.9 pg (26.0-34.0); MCHC 33.4 g/dL (31.0-37.0); MCV 92.4 fL (80.0-100.0); MEAN PLATELET VOLUME 11.2 fL (7.4-10.4); MONOCYTES 8.9 % (2-11); PLATELET COUNT 158 10x3/uL (130-400); RBC 4.08 10x6/uL (4.20-6.10); RDW 14.1 % (11.5-14.5); WBC 7.2 10x3/uL (4.8-10.8)
[2018-03-25 17:40] LABS: CKMB 0.9 U/L (0.0-3.6); CREATINE KINASE 38 UL (21-232); MAGNESIUM - SERUM 1.8 mg/dL (1.8-2.4); THYROID STIMULATING HORMONE 3.72 uIU/mL (0.36-3.74); TROPONIN-I < 0.017 ng/mL (0.000-0.060)
[2018-03-25 18:41] LABS: UDS - AMPHET NEGATIVE QUAL (NEGATIVE); UDS - BARB NEGATIVE QUAL (NEGATIVE); UDS - BENZO POSITIVE QUAL (NEGATIVE); UDS - COCAINE NEGATIVE QUAL (NEGATIVE); UDS - OPIATE NEGATIVE QUAL (NEGATIVE); UDS - PCP NEGATIVE QUAL (NEGATIVE); UDS - THC NEGATIVE QUAL (NEGATIVE)
[2018-03-25 18:42] LABS: APPEARANCE CLEAR (CLEAR); BILIRUBIN NEGATIVE (NEGATIVE); COLOR YELLOW (YELLOW); GLUCOSE NEGATIVE (NEGATIVE); KETONE NEGATIVE (NEGATIVE); NITRITE NEGATIVE (NEGATIVE); PROTEIN NEGATIVE (NEGATIVE); UROBILINOGEN NORMAL (NORMAL)
[2018-03-25 20:44] VITALS: BP 132/79
[2018-03-26] MEDS ORDERED: ZYPREXA10 MG PO (00:18)
== END 2018-03-25 20:44 | disposition home or self-care (01) ==
LOC: D.ER 15:39
PROVIDERS: Family Medicine
DX: F10.10 Alcohol abuse, uncomplicated (principal); I10 Essential (primary) hypertension; F17.200 Nicotine dependence, unspecified, uncomplicated

== ENCOUNTER 2018-03-25 23:57 | Emergency (ER) | payer MEDICAID ==
[~2018-03-25] VITALS: Ht 175.3 cm; Wt 75.0 kg
[2018-03-26 00:01] VITALS: Ht 175.3 cm; Wt 75.0 kg
[2018-03-26] MEDS ORDERED: ZYPREXA10 MG PO (00:18)
[2018-03-26 00:38] VITALS: BP 105/71
== END 2018-03-26 00:30 | disposition home or self-care (01) ==
LOC: D.ER 23:57
DX: F25.9 Schizoaffective disorder, unspecified (principal); F17.200 Nicotine dependence, unspecified, uncomplicated; I10 Essential (primary) hypertension

== ENCOUNTER 2018-05-02 19:55 | Emergency (ER) | payer MEDICAID ==
[~2018-05-02] VITALS: Ht 175.3 cm; Wt 72.7 kg
[~2018-05-02 19:55] MED LIST changes: +ZYPREXA10 MG PO
[2018-05-02 19:57] VITALS: Ht 175.3 cm; Wt 72.7 kg
[2018-05-02 20:42] LABS: ALBUMIN 3.8 g/dL (3.4-5.0); ALKALINE PHOSPHATASE 99 U/L (46-116); ALT (SGPT) 111 U/L (10-68); BILIRUBIN - TOTAL 0.24 mg/dL (0.2-1.3); CALC OSMOLALITY 287 mosm/kg (275-300); CALCIUM 8.5 mg/dL (8.5-10.1); CARBON DIOXIDE 28.9 mmol/L (21.0-32.0); CHLORIDE - SERUM 102 mmol/L (98-107); POTASSIUM - SERUM 3.8 mmol/L (3.5-5.1); PROTEIN - SERUM 7.5 g/dL (6.4-8.2); SODIUM 136 mmol/L (136-145); UREA NITROGEN 10 mg/dL (7-18); eGFR NON AFRICAN AMERICAN 82 mL/min (90-120)
[2018-05-02 20:46] LABS: GLUCOSE 405 mg/dL (74-106)
[2018-05-02] MEDS ORDERED: METFORMIN HCL500 M1 PO (22:32)
[2018-05-02 23:01] LABS: BASOPHILS 0 % (0-2); EOSINOPHILS 0.4 % (0-7); HEMATOCRIT 40.1 % (42.0-54.0); HEMOGLOBIN 13.3 g/dL (13.5-17.5); IMMATURE GRANULOCYTES 0.2 % (0-5); LYMPHOCYTES 41.1 % (15-50); MCH 29.9 pg (26.0-34.0); MCHC 33.2 g/dL (31.0-37.0); MCV 90.1 fL (80.0-100.0); MEAN PLATELET VOLUME 11.2 fL (7.4-10.4); MONOCYTES 8.3 % (2-11); PLATELET COUNT 128 10x3/uL (130-400); RBC 4.45 10x6/uL (4.20-6.10); RDW 13.4 % (11.5-14.5); WBC 5.4 10x3/uL (4.8-10.8)
[2018-05-02 23:14] LABS: APPEARANCE CLEAR (CLEAR); BILIRUBIN NEGATIVE (NEGATIVE); COLOR YELLOW (YELLOW); GLUCOSE 1000 mg/dL (NEGATIVE); KETONE NEGATIVE (NEGATIVE); NITRITE NEGATIVE (NEGATIVE); PROTEIN NEGATIVE (NEGATIVE); SPECIFIC GRAVITY 1.015 (1.005-1.020); UROBILINOGEN NORMAL (NORMAL)
[2018-05-03 02:00] VITALS: BP 126/84
== END 2018-05-03 02:21 | disposition home or self-care (01) ==
LOC: D.ER 19:55
PROVIDERS: Emergency Medicine
DX: E11.65 Type 2 diabetes mellitus with hyperglycemia (principal); Z91.14 Patient's other noncompliance with medication regimen

== ENCOUNTER → 2018-06-06 12:16 | Outpatient (CLI) | payer MEDICAID ==
[2018-05-02 19:57] VITALS: BMI 23.6
[~2018-06-06 12:16] MED LIST changes: +METFORMIN HCL500 M1 PO
[2018-06-06 13:03] LABS: AMYLASE - SERUM 48 U/L (25-115); CALC OSMOLALITY 286 mosm/kg (275-300); CALCIUM 8.6 mg/dL (8.5-10.1); CHLORIDE - SERUM 105 mmol/L (98-107); CREATININE - SERUM 0.9 mg/dL (0.6-1.3); LIPASE 166 U/L (73-393); POTASSIUM - SERUM 4.1 mmol/L (3.5-5.1); SODIUM 141 mmol/L (136-145); UREA NITROGEN 9 mg/dL (7-18); eGFR NON AFRICAN AMERICAN > 90 mL/min (90-120)
[2018-06-06 13:04] LABS: GLUCOSE 228 mg/dL (74-106)
== END | disposition home or self-care (01) ==
LOC: D.LAB 12:16
PROVIDERS: Family Medicine
DX: E11.9 Type 2 diabetes mellitus without complications (principal)

== ENCOUNTER 2018-07-28 15:29 | Observation (INO) | payer MEDICAID ==
[~2018-07-28] VITALS: Ht 175.3 cm; Wt 68.9 kg
[2018-07-28] MEDS ORDERED: GLUCOPHAGE1000 MG PO (15:47)
[2018-07-28] MEDS ORDERED: SEROQUEL200 MG PO (15:48)
[2018-07-28] MEDS ORDERED: EFFEXOR75 MG PO (15:48)
[2018-07-28] MEDS ORDERED: TOPROL XL50 MG PO (15:48)
[2018-07-28] MEDS ORDERED: NEURONTIN 300300 MG PO (15:49)
[2018-07-28] MEDS ORDERED: LISINOPRIL20 MG PO (15:49)
[2018-07-28 16:00] VITALS: BP 91/57
[2018-07-28 16:30] VITALS: BP 85/54
[2018-07-28 16:32] LABS: BASOPHILS 0 % (0-2); EOSINOPHILS 2.1 % (0-7); HEMATOCRIT 34.3 % (42.0-54.0); HEMOGLOBIN 12.4 g/dL (13.5-17.5); IMMATURE GRANULOCYTES 0.3 % (0-5); LYMPHOCYTES 33.4 % (15-50); MCH 31.3 pg (26.0-34.0); MCHC 36.2 g/dL (31.0-37.0); MCV 86.6 fL (80.0-100.0); MEAN PLATELET VOLUME 8.7 fL (7.4-10.4); MONOCYTES 9.1 % (2-11); NEUTROPHILS 55.1 % (40-80); RBC 3.96 10x6/uL (4.20-6.10); RDW 13.7 % (11.5-14.5); WBC 6.1 10x3/uL (4.8-10.8)
[2018-07-28 16:33] LABS: PLATELET COUNT 182 10x3/uL (130-400)
[2018-07-28 16:54] LABS: ALBUMIN 3.4 g/dL (3.4-5.0); ALKALINE PHOSPHATASE 92 U/L (46-116); ALT (SGPT) 106 U/L (10-68); BILIRUBIN - TOTAL 0.36 mg/dL (0.2-1.3); CALC OSMOLALITY 252 mosm/kg (275-300); CALCIUM 8.6 mg/dL (8.5-10.1); CARBON DIOXIDE 25.8 mmol/L (21.0-32.0); CHLORIDE - SERUM 91 mmol/L (98-107); CREATININE - SERUM 0.7 mg/dL (0.6-1.3); GLUCOSE 141 mg/dL (74-106); POTASSIUM - SERUM 4.2 mmol/L (3.5-5.1); PROTEIN - SERUM 6.7 g/dL (6.4-8.2); SODIUM 126 mmol/L (136-145); UREA NITROGEN 8 mg/dL (7-18); eGFR NON AFRICAN AMERICAN > 90 mL/min (90-120)
[2018-07-28 18:30] VITALS: BP 100/67
--- NOTE | 2018-07-28 21:13 | NUR ---
PA SITED 20G REJ D/T PIV INFILTRATION
--- NOTE | 2018-07-28 21:26 | NUR ---
PT ARRIVED ON UNIT VIA WHEELCHAIR ESCORTED BY ER STAFF. IV TO RIGHT EJ PATENT. STARTED IV FLUIDS VIA PUMP AT 100 ML / HR PER ORDER.
[2018-07-28] MEDS ORDERED: LANTUS INSULIN10 ML SC (21:30)
--- NOTE | 2018-07-28 21:55 | NUR ---
RECEIVED ORDER FROM DIAMANTE JOHNSON FOR TYLENOL 500 ML Q6HR PO FOR C/O HEADACHE. GAVE WITH COFFEE. WILL MONITOR FOR EFFECTIVENESS.
[2018-07-28 23:45] VITALS: BP 100/67; BMI 22.5
[2018-07-29] VITALS: BP 88/44
--- NOTE | 2018-07-29 00:03 | NUR ---
PT RESTING ON LEFT SIDE WITH EYES CLOSED AND EASY RESPIRATIONS. WILL CONTINUE TO MONITOR FOR NEEDS.
--- NOTE | 2018-07-29 00:03 | NUR ---
ADMISSION ASSESSMENT AND HISTORY COMPLETE.
[2018-07-29 04:00] VITALS: BP 96/53
[2018-07-29 09:39] VITALS: BP 120/76
[2018-07-29 10:31] LABS: BASOPHILS 0 % (0-2); EOSINOPHILS 1.2 % (0-7); HEMATOCRIT 34.6 % (42.0-54.0); HEMOGLOBIN 12.4 g/dL (13.5-17.5); IMMATURE GRANULOCYTES 0.5 % (0-5); LYMPHOCYTES 29.3 % (15-50); MCH 31.8 pg (26.0-34.0); MCHC 35.8 g/dL (31.0-37.0); MEAN PLATELET VOLUME 9.2 fL (7.4-10.4); MONOCYTES 11.2 % (2-11); NEUTROPHILS 57.8 % (40-80); PLATELET COUNT 191 10x3/uL (130-400); RDW 14.1 % (11.5-14.5)
[2018-07-29 10:35] LABS: MCV 88.7 fL (80.0-100.0); WBC 4.3 10x3/uL (4.8-10.8)
[2018-07-29 10:44] LABS: CALC OSMOLALITY 272 mosm/kg (275-300); CALCIUM 8.4 mg/dL (8.5-10.1); CARBON DIOXIDE 23.8 mmol/L (21.0-32.0); CHLORIDE - SERUM 99 mmol/L (98-107); CREATININE - SERUM 0.8 mg/dL (0.6-1.3); FERRITIN 58 ng/mL (3-244); LDH 131 U/L (85-227); POTASSIUM - SERUM 4.6 mmol/L (3.5-5.1); SODIUM 133 mmol/L (136-145); UREA NITROGEN 8 mg/dL (7-18); eGFR NON AFRICAN AMERICAN > 90 mL/min (90-120)
[2018-07-29 10:46] LABS: GLUCOSE 265 mg/dL (74-106)
[2018-07-29 10:51] LABS: % SATURATION 17 % (15-55); IRON 59 ug/dl (35-150); TOTAL IRON BIND CAPACITY 343 ug/dl (260-445); UNSAT IRON BIND CAPACITY 284 ug/dl (150-375)
[2018-07-29 13:32] VITALS: BP 133/78
[2018-07-29 13:54] VITALS: Ht 175.3 cm; Wt 68.9 kg
--- NOTE | 2018-07-29 16:46 | NUR ---
I have reviewed this patient and I concur with the Shift Assessment completed by the Licensed Practical Nurse today this shift.
[2018-07-29 17:07] VITALS: BP 126/72
[2018-07-29 19:58] VITALS: BP 90/48
--- NOTE | 2018-07-29 23:00 | NUR ---
ATTEMPTED TO RESITE IV X 2, WITH NO SUCCESS. OTHER NURSE ATTEMPTED X 1, PT REFUSED TO BE STUCK AGAIN TONIGHT. WILL CONTINUE TO MONITOR.
[2018-07-30] VITALS: BP 88/45
[2018-07-30 02:32] LABS: UDS - AMPHET NEGATIVE QUAL (NEGATIVE); UDS - BARB NEGATIVE QUAL (NEGATIVE); UDS - BENZO NEGATIVE QUAL (NEGATIVE); UDS - COCAINE NEGATIVE QUAL (NEGATIVE); UDS - OPIATE NEGATIVE QUAL (NEGATIVE); UDS - PCP NEGATIVE QUAL (NEGATIVE); UDS - THC NEGATIVE QUAL (NEGATIVE)
[2018-07-30 02:36] LABS: APPEARANCE CLEAR (CLEAR); COLOR YELL (YELLOW); GLUCOSE NEGATIVE (NEGATIVE); KETONE NEGATIVE (NEGATIVE); NITRITE NEGATIVE (NEGATIVE); PROTEIN 1+ mg/dL (NEGATIVE)
[2018-07-30 02:37] LABS: BACTERIA NONE SEEN /hpf (NONE SEEN); BILIRUBIN NEGATIVE (NEGATIVE); EPITHELIAL CELLS OCC /hpf (0-5); RED CELLS - URINE OCC /hpf (0-5); WHITE CELLS - URINE NSEEN /hpf (0-5)
--- NOTE | 2018-07-30 02:46 | NUR ---
I have reviewed this patient and I concur with the Shift Assessment completed by the Licensed Practical Nurse today this shift.
[2018-07-30 04:00] VITALS: BP 105/66
[2018-07-30 06:12] LABS: FOLATE (FOLIC ACID) - SERUM 10.3 ng/mL (>3.0)
[2018-07-30 06:48] LABS: BASOPHILS 0 % (0-2); EOSINOPHILS 1.6 % (0-7); HEMATOCRIT 35.6 % (42.0-54.0); IMMATURE GRANULOCYTES 0.4 % (0-5); LYMPHOCYTES 42.5 % (15-50); MCH 30.4 pg (26.0-34.0); MCHC 33.7 g/dL (31.0-37.0); MCV 90.1 fL (80.0-100.0); MEAN PLATELET VOLUME 9.4 fL (7.4-10.4); MONOCYTES 10.8 % (2-11); NEUTROPHILS 44.7 % (40-80); PLATELET COUNT 193 10x3/uL (130-400); RBC 3.95 10x6/uL (4.20-6.10); RDW 14.3 % (11.5-14.5)
[2018-07-30 07:04] LABS: CALC OSMOLALITY 275 mosm/kg (275-300); CALCIUM 8.5 mg/dL (8.5-10.1); CARBON DIOXIDE 28.5 mmol/L (21.0-32.0); CHLORIDE - SERUM 102 mmol/L (98-107); CREATININE - SERUM 0.7 mg/dL (0.6-1.3); POTASSIUM - SERUM 4.6 mmol/L (3.5-5.1); SODIUM 137 mmol/L (136-145); UREA NITROGEN 9 mg/dL (7-18); eGFR NON AFRICAN AMERICAN > 90 mL/min (90-120)
[2018-07-30 07:05] LABS: GLUCOSE 156 mg/dL (74-106)
[2018-07-30 08:30] VITALS: BP 131/85
[2018-07-30] MEDS ORDERED: ULTRAM50 MG PO ×2 (09:55→11:12)
[2018-07-30 12:16] VITALS: BP 154/85
--- NOTE | 2018-07-30 14:45 | NUR ---
DC HOME AT THIS TIME VOICE UNDERSTANDING OF DC ORDERS. DENIES ANY PAIN OR DISCOMFORT NOTED OR VOICED. CAN EXPRESS NEEDS AND WANTS.
--- NOTE | 2018-07-30 19:13 | MORECARE ---
CASE MANAGEMENT DISCHARGE SUMMARY PATIENT: FAUSTO BARAKAT UNIT: [id number] ADM DATE: 07/28/18 AGE: 58 : [birth year] SEX: M ROOM/BED: D.2227 AUTHOR: RAAD MENEZES PHYSICIAN: REFERRING PHYSICIAN: JESENIA SIFUENTES MD DATE OF SERVICE: 07/30/18 Discharge Plan Patient Name: FAUSTO BARAKAT Facility: [facility]:[place] : 1960 Planned Disposition: Home Anticipated Discharge Date: 07/30/18 Discharge Date: 07/30/2018 Expected LOS: 2 Initial Reviewer: [email or web address] Initial Review Date: 07/28/2018 Generated: 07/30/18 8:13 pm Comments DCP- Discharge Planning Updated by [email or web address]: Leia Emerson on 07/30/18 11:[address] Patient Name: FAUSTO BARAKAT Admission Status: ER Accout number: [id number] Admission Date: 07-28-2018 : 1960 Admission Diagnosis: Attending: JESENIA SIFUENTES Current LOS: 2 Anticipated DC Date: Planned Disposition: Primary Insurance: MEDICAID [place] Discharge Planning Comments: PT STATES HE HAS NO RIDE HOME. I CALLED CONTACTS WITH NO ANSWER. BUS PASS GIVEN PT LIVES ON [facility] IN DENIES ANY OTHER CM NEEDS. STATES HOME IS A SAFE DC PLAN. Hospitality Services Manager: Leia Emerson Patient Name: FAUSTO BARAKAT Page [phone] at 1913 All edits/amendments must be made on the electronic document DICTATION DATE: 07/30/181912 ACCESS CONTROL SPECIALIST: RUDDY 07/30/181912 RPT#: [id number] DC DATE:07/30/18 STATUS: DIS IN [facility] [address] [place] [address] END OF REPORT
== END 2018-07-30 14:47 | disposition home or self-care (01) ==
LOC: D.ER 15:29 → D.M2 18:27 → OBSVTIME 18:27 → D.MS 20:39
PROVIDERS: Emergency Medicine; ADMIT Internal Medicine Nephrology; ATTEND Internal Medicine Nephrology
DX: I95.9 Hypotension, unspecified (principal); R51 Headache; M25.512 Pain in left shoulder; M54.2 Cervicalgia; M54.9 Dorsalgia, unspecified; W18.30XA Fall on same level, unspecified, initial encounter; D64.9 Anemia, unspecified; F17.213 Nicotine dependence, cigarettes, with withdrawal; E11.9 Type 2 diabetes mellitus without complications; I10 Essential (primary) hypertension